=== PATIENT | female | born 1995 | race Caucasian/White ===

== ENCOUNTER 2017-01-14 16:27 | Emergency (ER) | payer OTHER ==
[~2017-01-14] VITALS: Ht 165.1 cm; Wt 61.2 kg
[2017-01-14] MEDS ORDERED: KETOROLAC 30 MG/ML VIAL (J1885) IV ONE (17:15)
[2017-01-14] MEDS ORDERED: NS 1,000 ML IV ONE (17:15)
[2017-01-14] MEDS ORDERED: ONDANSETRON 4MG/2ML VIAL (J2405) IV ONE (17:15)
[2017-01-14 17:52] LABS: BASO % 0.3 % (0.0-1.0); EOS % 0.6 % (0.0-3.0); LARGE UNSTAINED CELL # 0.1 K/mm3 (0.0-0.4); LARGE UNSTAINED CELL % 1.5 % (0.0-4.0); LYMPH % 12.1 % (24.0-44.0); MEAN CORPUSCULAR HEMOGLOBIN 29.7 pg (27.0-33.0); MEAN CORPUSCULAR HGB CONC 33.3 g/dl (32.0-36.5); MEAN CORPUSCULAR VOLUME 89.2 fl (80.0-96.0); MONO # 0.6 K/mm3 (0.0-0.8); MONO % 7.3 % (0.0-5.0); NEUTROPHILS % 78.2 % (36.0-66.0); PLATELET COUNT, AUTOMATED 260 k/mm3 (150-450); WHITE BLOOD COUNT 7.7 K/mm3 (4.0-10.0)
[2017-01-14 18:10] LABS: ALBUMIN/GLOBULIN RATIO 1.25 (1.00-1.93); ALKALINE PHOSPHATASE 74 U/L (45-117); ALT/SGPT 23 U/L (12-78); ANION GAP 5 MEQ/L (8-16); AST/SGOT 22 U/L (15-37); BILIRUBIN,DIRECT 0.4 MG/DL (0.0-0.2); BILIRUBIN,TOTAL 1.5 MG/DL (0.2-1.0); BLOOD UREA NITROGEN 12 MG/DL (7-18); CALCIUM LEVEL 9.1 MG/DL (8.5-10.1); CARBON DIOXIDE LEVEL 28 MEQ/L (21-32); CHLORIDE LEVEL 103 MEQ/L (98-107); CREATININE FOR GFR 1.16 MG/DL (0.55-1.02); GLOMERULAR FILTRATION RATE > 60.0 (>60); GLUCOSE, FASTING 83 MG/DL (70-105); POTASSIUM SERUM 4.3 MEQ/L (3.5-5.1); SODIUM LEVEL 136 MEQ/L (136-145); TOTAL PROTEIN 7.2 GM/DL (6.4-8.2)
--- NOTE | 2017-01-14 18:30 | REPUSA ---
CLINICAL HISTORY: Abdominal pain. TECHNIQUE: Multiple axial, sagittal and coronal CT images were obtained through the abdomen and pelvi s without administration of oral or IV contrast material. COMMENTS: The liver is of uniform attenuation without mass or defect. There is no intra or extrahepatic biliary ductal dilatation. The spleen is normal. The gallbladder is within normal limits. The pancreas is of normal contour and attenuation characteristics. There is no evidence of adrenal mass. The kidneys are normal in size, shape and configuration. 2.5 mm calculus is noted at the right UVJ pr oducing mild hydroureteronephrosis. There is a nonobstructing 4 mm calculus noted in the midpole of t he left kidney. There is a punctate nonobstructing calculus noted in the lower pole of the left kidne y. There is a 5 x 3 mm nonobstructing calculus noted in the superior pole of the left kidney. There is no evidence for appendicitis. There is no bowel wall thickening. No evidence for small or la rge bowel obstruction. There is no evidence of abdominal ascites or lymphadenopathy. There is no evidence of intrinsic or extrinsic bladder mass. There is no pelvic ascites or lymphadeno pilar. The uterus and ovaries are unremarkable. Images of the lung bases show no evidence of pleural or parenchymal mass. There are no pleural effusi ons. The bony structures are free of lytic or blastic lesions. IMPRESSION: 2.5 mm calculus is noted at the right UVJ producing mild hydroureteronephrosis. Several nonobstructing left renal calculi. Thank you for your kind referral of this patient.
[2017-01-14 18:43] VITALS: BP 108/67
[2017-01-14] MEDS ORDERED: ULTR50TA8 PO (18:47)
[2017-01-14] MEDS ORDERED: NAPR500T PO (18:47)
[2017-01-14] MEDS ORDERED: ZOFR4TAB3 PO (18:47)
[2017-01-14] MEDS ORDERED: FLOM5CAP PO (18:48)
[2017-01-14] MEDS ORDERED: traMADol 50 MG TAB (BULK 4 TAB ED) PO ONE (19:00)
== END 2017-01-14 19:02 | disposition home or self-care (01) ==
LOC: M ED 17:15
DX: N13.2 Hydronephrosis with renal and ureteral calculous obstruction (principal)

== ENCOUNTER → 2017-02-13 | Outpatient (CLI) | payer OTHER ==
[~2017-02-13] MED LIST: FLOM5CAP PO; NAPR500T PO; TYLE650T35 PO; ULTR50TA8 PO; ZOFR4TAB3 PO
[2017-02-13 16:27] LABS: CONTROL LINE HCG INT CTR LINE PRESENT
[2017-02-13 16:32] LABS: ANION GAP 5 MEQ/L (8-16); BLOOD UREA NITROGEN 12 MG/DL (7-18); CALCIUM LEVEL 9.7 MG/DL (8.5-10.1); CARBON DIOXIDE LEVEL 28 MEQ/L (21-32); CHLORIDE LEVEL 108 MEQ/L (98-107); CREATININE FOR GFR 0.73 MG/DL (0.55-1.02); GLOMERULAR FILTRATION RATE > 60.0 (>60); GLUCOSE, FASTING 83 MG/DL (70-105); SODIUM LEVEL 141 MEQ/L (136-145)
[2017-02-13 16:38] LABS: POTASSIUM SERUM 5.2 MEQ/L (3.5-5.1)
== END ==
LOC: M LAB 15:38
PROVIDERS: ATTEND Nurse Practitioner Family
DX: N92.5 Other specified irregular menstruation (principal); N20.2 Calculus of kidney with calculus of ureter

== ENCOUNTER → 2017-02-15 | Outpatient (REF) | payer OTHER | LOC: M SMT 12:54 | PROVIDERS: ATTEND Nurse Practitioner Women's Health | DX: N20.0 Calculus of kidney (principal) ==

== ENCOUNTER → 2017-02-16 | Outpatient (CLI) | payer OTHER ==
[2017-02-16 19:04] LABS: CONTROL LINE HCG INT CTR LINE PRESENT
[2017-02-16 19:17] LABS: ANION GAP 5 MEQ/L (8-16); BLOOD UREA NITROGEN 15 MG/DL (7-18); CALCIUM LEVEL 9.7 MG/DL (8.5-10.1); CARBON DIOXIDE LEVEL 29 MEQ/L (21-32); CHLORIDE LEVEL 104 MEQ/L (98-107); CREATININE FOR GFR 0.89 MG/DL (0.55-1.02); GLOMERULAR FILTRATION RATE > 60.0 (>60); GLUCOSE, FASTING 65 MG/DL (70-105); SODIUM LEVEL 138 MEQ/L (136-145)
[2017-02-16 19:34] LABS: MEAN CORPUSCULAR HEMOGLOBIN 29.8 pg (27.0-33.0); MEAN CORPUSCULAR VOLUME 90.2 fl (80.0-96.0); RED CELL DISTRIBUTION WIDTH 12.9 % (11.5-14.5); WHITE BLOOD COUNT 3.2 K/mm3 (4.0-10.0)
[2017-02-16 19:52] LABS: INR 0.95
== END ==
LOC: M SMT 15:45
PROVIDERS: ATTEND Nurse Practitioner Women's Health
DX: N20.0 Calculus of kidney (principal); Z01.818 Encounter for other preprocedural examination

== ENCOUNTER 2017-03-01 07:03 | Day surgery (SDC) | payer OTHER ==
[~2017-03-01] VITALS: Ht 165.1 cm; Wt 61.2 kg
[~2017-03-01 07:03] MED LIST changes: -TYLE650T35 PO
[2017-03-01] MEDS ORDERED: LR 1,000 ML IV SCH (07:30)
--- NOTE | 2017-03-01 07:37 | REP ---
Clinical: Nephrolithiasis. Correlation: CT dated 01/14/2017. Findings: Single supine view of the abdomen and pelvis demonstrates multiple nonobstructing left renal calculi measuring up to approximately 5 mm. Further evaluation of the urinary tract system is limited and the previously noted right UVJ stone is not identified. The bowel gas pattern is nonspecific. No organomegaly. Skeletal structures are intact. Impression: Nonobstructing left renal calculi up to 5 mm. Right UVJ stone on recent CT not visualized on current x-ray. Signed by Ajay Boo MD 03/01/2017 07:29 A
[2017-03-01 08:07] LABS: CONTROL LINE UCG INT CTR LINE PRESENT
[2017-03-01] MEDS ORDERED: LIDOCAINE 2% INJ 100 MG/5 ML SDV (FOR ANES.) As Ordered ONE (08:22)
[2017-03-01] MEDS ORDERED: ONDANSETRON 4MG/2ML VIAL (J2405) As Ordered ONE (08:22)
[2017-03-01] MEDS ORDERED: PROPOFOL 200 MG/20 ML VIAL As Ordered ONE (08:22)
[2017-03-01] MEDS ORDERED: fentaNYL 100 MCG/2 ML INJECTION (J3010) As Ordered ONE (08:22)
[2017-03-01] MEDS ORDERED: MIDAZOLAM INJ 2 MG/2 ML VIAL (J2250) As Ordered ONE (08:22)
[2017-03-01] MEDS ORDERED: SEVOFLURANE INHAL SOLN 250 ML BTL As Ordered ONE (08:38)
[2017-03-01] MEDS ORDERED: DESFLURANE 240 ML INHALANT As Ordered ONE (08:38)
[2017-03-01] MEDS ORDERED: TYLE650T35 PO (08:50)
[2017-03-01] MEDS ORDERED: PERCOCET 5MG/325MG TAB PO PRN (09:15)
[2017-03-01 09:40] VITALS: BP 122/88
--- NOTE | 2017-03-02 10:36 | RO ---
DATE OF PROCEDURE: 03/01/2017 PREOPERATIVE DIAGNOSIS: Left renal stone. POSTOPERATIVE DIAGNOSIS: Left renal stone. SURGERY PERFORMED: Left extracorporeal shock wave lithotripsy. SURGEON: David Darby MD BREAST TRIMMER: None. ANESTHESIA: General. COMPLICATIONS: None. ESTIMATED BLOOD LOSS: N/A. HISTORY OF PRESENT ILLNESS: This is a 21-year-old female patient that has am 8 mm renal stone in the lower pole. The patient is doing very well. She has consented for a left extracorporeal shock wave lithotripsy. PROCEDURE DESCRIPTION: With the patient under monitored anesthesia care (MAC) in supine position, after finding the stone with ultrasound and x-ray, we gave a total of 2000 shock wave lithotripsies at a power 1-20. The first 100 shock waves were done at a level of 1-5. The following 100 shock waves were done at a level of 5-10 and the following final 2300 shock waves were done at a level of 10-20. The patient tolerated well the procedure. She will be going home today with Flomax and she will continue taking tramadol, and we will give her Tylenol vufr-izl-voxmtvm also, 650 mg, Extended Release Arthritis, one tablet by mouth every 8 hours as needed for pain. She will drink more than 2 liters of water a day. She will followup in 3 weeks at [facility] and see if she needs a second session extracorporeal shock wave lithotripsy (ESWL).
== END 2017-03-07 10:00 ==
LOC: M SDC 07:03
PROVIDERS: ATTEND Urology
DX: N20.0 Calculus of kidney (principal); Z79.899 Other long term (current) drug therapy

== ENCOUNTER → 2017-03-22 | Outpatient (CLI) | payer OTHER ==
[~2017-03-22] MED LIST changes: +TYLE650T35 PO
--- NOTE | 2017-03-22 08:58 | REP ---
KUB: Two views. History: Kidney stone. Comparison study: March 01, 2017. Findings: There are two irregular calcifications overlying the left kidney consistent with intrarenal calculi. The largest of these measures 5 mm in greatest dimension. No change from comparison radiograph. No ureteral stone is appreciated. Bowel gas pattern is normal. Impression: Calcific opacities overlie the left kidney consistent with intrarenal nephrolithiasis. Signed by Johnny Iqbal MD 03/22/2017 01:57 P
[2017-03-22 12:52] LABS: IONIZED CALCIUM 5.1 MG/DL (4.5-5.3)
[2017-03-22 13:28] LABS: ANION GAP 5 MEQ/L (8-16); BLOOD UREA NITROGEN 14 MG/DL (7-18); CALCIUM LEVEL 9.4 MG/DL (8.5-10.1); CARBON DIOXIDE LEVEL 29 MEQ/L (21-32); CHLORIDE LEVEL 108 MEQ/L (98-107); CREATININE FOR GFR 0.78 MG/DL (0.55-1.02); GLOMERULAR FILTRATION RATE > 60.0 (>60); GLUCOSE, FASTING 92 MG/DL (70-105); MAGNESIUM LEVEL 2.2 MG/DL (1.8-2.4); PHOSPHORUS LEVEL 3.6 MG/DL (2.5-4.9); POTASSIUM SERUM 4.7 MEQ/L (3.5-5.1); SODIUM LEVEL 142 MEQ/L (136-145)
== END ==
LOC: M SMT 08:31
PROVIDERS: ATTEND Nurse Practitioner Women's Health
DX: N20.0 Calculus of kidney (principal)

== ENCOUNTER → 2017-03-22 | Outpatient (REF) | payer OTHER ==
[2017-03-22 18:04] LABS: ANION GAP 5 MEQ/L (8-16); BLOOD UREA NITROGEN 11 MG/DL (7-18); CALCIUM LEVEL 9.2 MG/DL (8.5-10.1); CARBON DIOXIDE LEVEL 29 MEQ/L (21-32); CHLORIDE LEVEL 106 MEQ/L (98-107); CREATININE FOR GFR 0.74 MG/DL (0.55-1.02); GLOMERULAR FILTRATION RATE > 60.0 (>60); GLUCOSE, FASTING 78 MG/DL (70-105); POTASSIUM SERUM 4.6 MEQ/L (3.5-5.1); SODIUM LEVEL 140 MEQ/L (136-145)
== END ==
LOC: M LABDRAW1 15:57
PROVIDERS: ATTEND Internal Medicine Endocrinology, Diabetes & Metabolism
DX: E04.9 Nontoxic goiter, unspecified (principal)

== ENCOUNTER 2017-08-06 07:14 | Emergency (ER) | payer MEDICAID, SELFPAY, OTHER ==
[2017-08-06 08:16] LABS: KETONE, URINE AUTO RFX NEGATIVE (NEGATIVE); LEUKOCYTE ESTERASE UR AUTO RFX NEGATIVE (NEGATIVE); MUCUS, URINE RFX SMALL (NEGATIVE); NITRITE, URINE AUTO RFX NEGATIVE (NEGATIVE); RBC, URINE AUTO RFX 1 /HPF (0-3); SPECIFIC GRAVITY UR AUTO RFX 1.019 (1.002-1.035); SQUAM EPITHELIAL CELL UR AURFX 0 /HPF (0-6); WBC, URINE AUTO RFX 1 /HPF (0-3)
[2017-08-06 08:43] LABS: BASO % 0.1 % (0.0-1.0); EOS # 0.1 10^3/uL (0.0-0.50); EOS % 0.6 % (0.0-3.0); HEMATOCRIT 42.7 % (36.0-47.0); HEMOGLOBIN 13.7 g/dl (12.0-16.0); IMMATURE GRANULOCYTE % 0.2 % (0-0); LYMPH % 12.1 % (24.0-44.0); MEAN CORPUSCULAR HEMOGLOBIN 27.6 pg (27.0-33.0); MEAN CORPUSCULAR HGB CONC 32.1 g/dl (32.0-36.5); MEAN CORPUSCULAR VOLUME 85.9 fl (80.0-96.0); MONO # 0.7 10^3/uL (0.0-0.8); MONO % 7.5 % (0.0-5.0); NEUTROPHILS # 6.9 10^3/uL (1.8-7.7); NEUTROPHILS % 79.5 % (36.0-66.0); PLATELET COUNT, AUTOMATED 279 10^3/uL (150-450); RED BLOOD COUNT 4.97 10^6/uL (4.00-5.40); RED CELL DISTRIBUTION WIDTH 14.1 % (11.5-14.5); WHITE BLOOD COUNT 8.6 10^3/uL (4.0-10.0)
[2017-08-06 09:02] LABS: ALBUMIN 3.7 GM/DL (3.2-5.2); ALBUMIN/GLOBULIN RATIO 0.95 (1.00-1.93); ALKALINE PHOSPHATASE 55 U/L (45-117); ALT/SGPT 17 U/L (12-78); AMYLASE 129 U/L (25-115); ANION GAP 6 MEQ/L (8-16); AST/SGOT 19 U/L (7-37); BILIRUBIN,DIRECT 0.2 MG/DL (0.0-0.2); BILIRUBIN,TOTAL 1.1 MG/DL (0.2-1.0); BLOOD UREA NITROGEN 12 MG/DL (7-18); CALCIUM LEVEL 8.5 MG/DL (8.5-10.1); CARBON DIOXIDE LEVEL 27 MEQ/L (21-32); CHLORIDE LEVEL 109 MEQ/L (98-107); CREATININE FOR GFR 0.74 MG/DL (0.55-1.02); GLOMERULAR FILTRATION RATE > 60.0 (>60); GLUCOSE, FASTING 89 MG/DL (70-105); LIPASE 146 U/L (73-393); SODIUM LEVEL 142 MEQ/L (136-145); TOTAL PROTEIN 7.6 GM/DL (6.4-8.2)
== END 2017-08-06 10:05 | disposition home or self-care (01) ==
LOC: M ED 07:14
DX: R10.13 Epigastric pain (principal); Z87.442 Personal history of urinary calculi
CPT/HCPCS: 76705

== ENCOUNTER → 2017-08-20 | Outpatient (REF) | payer MEDICAID ==
[2017-08-20 21:48] LABS: CHLAMYDIA DNA AMPLIFICATION POSITIVE (NEGATIVE); GC DNA AMPLIFICATION NEGATIVE (NEGATIVE)
== END ==
LOC: M LAB REF 17:19
DX: N89.8 Other specified noninflammatory disorders of vagina (principal)
CPT/HCPCS: 87591

== ENCOUNTER 2017-08-31 12:30 | Emergency (ER) | payer OTHER, MEDICAID ==
[2017-08-31] MEDS: GI COCKTAIL 50ML BTL(HYOSCYAMINE/MAALOX/LIDOCAINE VISCOUS)(1:3:1) PO (13:44)
[2017-08-31 13:54] LABS: BASO % 0.3 % (0.0-1.0); EOS % 0.3 % (0.0-3.0); HEMATOCRIT 43.7 % (36.0-47.0); HEMOGLOBIN 14.1 g/dl (12.0-16.0); IMMATURE GRANULOCYTE % 0.4 % (0-0); LYMPH # 1.1 10^3/uL (1.5-6.5); MEAN CORPUSCULAR HEMOGLOBIN 27.3 pg (27.0-33.0); MEAN CORPUSCULAR HGB CONC 32.3 g/dl (32.0-36.5); MEAN CORPUSCULAR VOLUME 84.5 fl (80.0-96.0); MONO # 0.6 10^3/uL (0.0-0.8); MONO % 8.8 % (0.0-5.0); NEUTROPHILS # 5.5 10^3/uL (1.8-7.7); NEUTROPHILS % 75.2 % (36.0-66.0); PLATELET COUNT, AUTOMATED 322 10^3/uL (150-450); RED BLOOD COUNT 5.17 10^6/uL (4.00-5.40); RED CELL DISTRIBUTION WIDTH 13.9 % (11.5-14.5); WHITE BLOOD COUNT 7.3 10^3/uL (4.0-10.0)
[2017-08-31 14:21] LABS: ALBUMIN/GLOBULIN RATIO 0.95 (1.00-1.93); ALKALINE PHOSPHATASE 60 U/L (45-117); ALT/SGPT 19 U/L (12-78); ANION GAP 6 MEQ/L (8-16); AST/SGOT 17 U/L (7-37); BILIRUBIN,TOTAL 0.7 MG/DL (0.2-1.0); BLOOD UREA NITROGEN 12 MG/DL (7-18); CARBON DIOXIDE LEVEL 27 MEQ/L (21-32); CHLORIDE LEVEL 108 MEQ/L (98-107); CREATININE FOR GFR 0.73 MG/DL (0.55-1.30); GLOMERULAR FILTRATION RATE > 60.0 (>60); GLUCOSE, FASTING 89 MG/DL (70-100); LIPASE 116 U/L (73-393); POTASSIUM SERUM 4.8 MEQ/L (3.5-5.1); SODIUM LEVEL 141 MEQ/L (136-145); TOTAL PROTEIN 8.2 GM/DL (6.4-8.2)
== END 2017-08-31 15:20 | disposition home or self-care (01) ==
LOC: M ED 12:30
DX: R10.13 Epigastric pain (principal); Z87.442 Personal history of urinary calculi
CPT/HCPCS: 76705

== ENCOUNTER → 2017-09-30 | Outpatient (REF) | payer OTHER ==
[2017-09-30 20:34] LABS: CHLAMYDIA DNA AMPLIFICATION NEGATIVE (NEGATIVE); GC DNA AMPLIFICATION NEGATIVE (NEGATIVE)
== END ==
LOC: M SFHCLERA 16:29
DX: R10.9 Unspecified abdominal pain (principal)
CPT/HCPCS: 87086

== ENCOUNTER 2017-11-11 22:11 | Emergency (ER) | payer OTHER | END 2017-11-11 23:51 | disposition home or self-care (01) | LOC: M ED 22:11 | DX: R21 Rash and other nonspecific skin eruption (principal); Z79.899 Other long term (current) drug therapy | CPT/HCPCS: 99283 ==

== ENCOUNTER 2017-11-22 15:35 | Emergency (ER) | payer OTHER ==
[2017-11-22 16:45] LABS: KETONE, URINE AUTO RFX NEGATIVE (NEGATIVE); LEUKOCYTE ESTERASE UR AUTO RFX NEGATIVE (NEGATIVE); MUCUS, URINE RFX SMALL (NEGATIVE); NITRITE, URINE AUTO RFX NEGATIVE (NEGATIVE); RBC, URINE AUTO RFX 0 /HPF (0-3); SPECIFIC GRAVITY UR AUTO RFX 1.017 (1.002-1.035); SQUAM EPITHELIAL CELL UR AURFX 0 /HPF (0-6); WBC, URINE AUTO RFX 2 /HPF (0-3)
[2017-11-22] MEDS: PANTOPRAZOLE 40MG TAB (PROTONIX) PO (17:38)
[2017-11-22] MEDS: GI COCKTAIL 50ML BTL(HYOSCYAMINE/MAALOX/LIDOCAINE VISCOUS)(1:3:1) PO (17:38)
[2017-11-22] MEDS: ONDANSETRON 4 MG ORAL DISINTEGRATING TAB (Q0162 PER 1MG) PO (17:39)
== END 2017-11-22 18:00 | disposition home or self-care (01) ==
LOC: M ED 15:35
DX: K29.00 Acute gastritis without bleeding (principal); K21.9 Gastro-esophageal reflux disease without esophagitis; F33.9 Major depressive disorder, recurrent, unspecified; Z87.442 Personal history of urinary calculi; Z79.899 Other long term (current) drug therapy
CPT/HCPCS: Q0162

== ENCOUNTER → 2017-11-29 | Outpatient (REF) | payer OTHER ==
[2017-11-29 20:28] LABS: CHLAMYDIA DNA AMPLIFICATION NEGATIVE (NEGATIVE); GC DNA AMPLIFICATION NEGATIVE (NEGATIVE)
== END ==
LOC: M LAB REF 16:32
DX: N89.8 Other specified noninflammatory disorders of vagina (principal)

== ENCOUNTER 2018-03-04 12:37 | Day surgery (SDC) | payer OTHER ==
[2018-03-04] MEDS ORDERED: NS 1,000 ML IV (13:00)
[2018-03-04] MEDS ORDERED: PROPOFOL 200 MG/20 ML VIAL As Ordered (14:08)
[2018-03-04] MEDS ORDERED: LIDOCAINE 2% INJ 100 MG/5 ML SDV (FOR ANES.) As Ordered (14:08)
[2018-03-04] MEDS ORDERED: fentaNYL 100 MCG/2 ML INJECTION (J3010) As Ordered (14:11)
[2018-03-04] MEDS ORDERED: ONDANSETRON 4MG/2ML VIAL (J2405) As Ordered (14:51)
== END 2018-03-04 15:38 | disposition home or self-care (01) ==
LOC: M OPP 12:37
DX: R10.13 Epigastric pain (principal); R11.10 Vomiting, unspecified; K31.89 Other diseases of stomach and duodenum; D64.9 Anemia, unspecified; F41.9 Anxiety disorder, unspecified; F32.9 Major depressive disorder, single episode, unspecified; Z87.442 Personal history of urinary calculi; Z79.899 Other long term (current) drug therapy; Z80.0 Family history of malignant neoplasm of digestive organs
CPT/HCPCS: 43239

== ENCOUNTER 2018-08-04 11:09 | Emergency (ER) | payer OTHER ==
[~2018-08-04] VITALS: Ht 165.1 cm; Wt 68.2 kg
[~2018-08-04 11:09] MED LIST changes: +FLOM0.4C39 PO; -FLOM5CAP PO; +HYDR-3363 PO; +NAPR-50 PO; -NAPR500T PO; +NORCOTAB PO; +PROB250C PO; +PROBCAP14 PO; +PROT1TAB2 PO; +VENTAER INH; +VITA500T53 PO; +ZANT300T9 PO; +ZOFR4TAB14 PO; -ZOFR4TAB3 PO; +atarax; +lexapro
[2018-08-04] MEDS ORDERED: KETOROLAC 60 MG/2 ML VIAL (J1885) IM ONE (12:30)
[2018-08-04 12:57] VITALS: BP 118/73
--- NOTE | 2018-08-04 12:57 | REP ---
CT cervical spine without contrast HISTORY: Trauma COMPARISON: None There is no acute fracture or subluxation. There is no disc bulge or herniation. The spinal canal and neural foramina are patent. The intervertebral discs and vertebral bodies are normal in height. IMPRESSION: There is no acute fracture or subluxation. Electronically Signed by Gabino Ariza MD 08/04/2018 12:48 P
[2018-08-04] MEDS ORDERED: MOBI4TAB PO (12:59)
[2018-08-04] MEDS ORDERED: CYCL10TA PO (12:59)
--- NOTE | 2018-08-04 13:26 | REP ---
THORACIC SPINE, THREE VIEWS: HISTORY: Trauma. There is no acute fracture or subluxation. The intervertebral discs are normal in height. IMPRESSION: There is no acute fracture or subluxation. Electronically Signed by Gabino Ariza MD 08/04/2018 01:31 P
--- NOTE | 2018-08-04 13:27 | REP ---
LUMBAR SPINE, FIVE VIEWS: HISTORY: Trauma. 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 There are four lumbar-type vertebral bodies with sacralization of L5. There is no acute fracture or subluxation. The intervertebral discs are normal in height. The facet joints are normal in appearance. IMPRESSION: There is no acute fracture or subluxation. Electronically Signed by Gabino Ariza MD 08/04/2018 01:31 P
== END 2018-08-04 13:07 | disposition home or self-care (01) ==
LOC: M ED 11:09
DX: M54.2 Cervicalgia (principal); M54.5 Low back pain
CPT/HCPCS: 72072; 72110; 72125; 81025; 96372; 99284; J1885

== ENCOUNTER → 2018-09-03 | Outpatient (REF) | payer OTHER, MEDICAID ==
[~2018-09-03] MED LIST changes: +CYCL10TA PO; +MOBI4TAB PO
[2018-09-03 20:00] LABS: HEMOGLOBIN 14.6 g/dl (12.0-15.5); MEAN CORPUSCULAR HEMOGLOBIN 28.9 pg (27.0-33.0); MEAN CORPUSCULAR HGB CONC 32.4 g/dl (32.0-36.5); MEAN CORPUSCULAR VOLUME 89.1 fl (80.0-96.0); PLATELET COUNT, AUTOMATED 319 10^3/uL (150-450); RED BLOOD COUNT 5.05 10^6/uL (4.00-5.40); WHITE BLOOD COUNT 5.8 10^3/uL (4.0-10.0)
[2018-09-03 20:34] LABS: HCG, SERUM QUANTITATIVE 58949 MIU/ML
[2018-09-04 09:41] LABS: RUBELLA IgG QUALITATIVE IMMUNE (IMMUNE)
[2018-09-04 10:09] LABS: HEPATITIS C VIRUS ABY INDEX 0.1 INDEX (<0.8)
[2018-09-04 10:10] LABS: HIV 1&2 SCREEN CENTAUR NEGATIVE (NEGATIVE)
== END ==
LOC: M LAB REF 17:34
PROVIDERS: ATTEND Nurse Practitioner Women's Health
DX: Z32.01 Encounter for pregnancy test, result positive (principal); O36.80X0 Pregnancy with inconclusive fetal viability, not applicable or unspecified

== ENCOUNTER → 2018-11-11 | Outpatient (REF) | payer OTHER, MEDICAID ==
[~2018-11-11] MED LIST changes: +HYDR-3715 PO; -NAPR-50 PO; +NAPR-837 PO; -NORCOTAB PO; +VITA500T17 PO; -VITA500T53 PO
== END ==
LOC: M LAB REF 16:39
PROVIDERS: ATTEND Nurse Practitioner Women's Health
DX: Z34.82 Encounter for supervision of other normal pregnancy, second trimester (principal); Z53.8 Procedure and treatment not carried out for other reasons

== ENCOUNTER → 2019-02-03 | Outpatient (CLI) | payer OTHER ==
[2019-02-03 12:44] LABS: HEMATOCRIT 36.4 % (36.0-47.0); HEMOGLOBIN 11.6 g/dl (12.0-15.5); MEAN CORPUSCULAR HEMOGLOBIN 29.8 pg (27.0-33.0); MEAN CORPUSCULAR HGB CONC 31.9 g/dl (32.0-36.5); MEAN CORPUSCULAR VOLUME 93.6 fl (80.0-96.0); PLATELET COUNT, AUTOMATED 270 10^3/uL (150-450); RED BLOOD COUNT 3.89 10^6/uL (4.00-5.40); WHITE BLOOD COUNT 8.5 10^3/uL (4.0-10.0)
== END ==
LOC: M LAB 11:03
PROVIDERS: ATTEND Nurse Practitioner Women's Health
DX: O26.892 Other specified pregnancy related conditions, second trimester (principal)

== ENCOUNTER → 2019-04-01 | Outpatient (REF) | payer OTHER | LOC: M LAB REF 13:07 | PROVIDERS: ATTEND Nurse Practitioner Women's Health | DX: Z34.03 Encounter for supervision of normal first pregnancy, third trimester (principal) ==

== ENCOUNTER → 2020-06-10 | Outpatient (REF) | payer OTHER ==
[~2020-06-10] MED LIST changes: +ACET650T61 PO; +CYCL-707 PO; -CYCL10TA PO; -TYLE650T35 PO
[2020-06-10 16:46] LABS: HEMATOCRIT 41.4 % (36.0-47.0); HEMOGLOBIN 12.8 g/dl (12.0-15.5); MEAN CORPUSCULAR HEMOGLOBIN 25.4 pg (27.0-33.0); MEAN CORPUSCULAR HGB CONC 30.9 g/dl (32.0-36.5); MEAN CORPUSCULAR VOLUME 82.1 fl (80.0-96.0); PLATELET COUNT, AUTOMATED 378 10^3/uL (150-450); RED BLOOD COUNT 5.04 10^6/uL (4.00-5.40); WHITE BLOOD COUNT 6.7 10^3/uL (4.0-10.0)
[2020-06-10 18:04] LABS: HCG, SERUM QUANTITATIVE 28452 MIU/ML; HEPATITIS C VIRUS ABY INDEX 0.1 INDEX (<0.8); HIV 1&2 SCREEN CENTAUR NEGATIVE (NEGATIVE)
== END ==
LOC: M LAB REF 16:15
PROVIDERS: ATTEND Advanced Practice Midwife
DX: O36.80X0 Pregnancy with inconclusive fetal viability, not applicable or unspecified (principal)

== ENCOUNTER → 2020-06-17 | Outpatient (CLI) | payer OTHER ==
--- NOTE | 2020-06-19 07:15 | REP ---
INDICATION: DATING AND VIABILITY COMPARISON: None. TECHNIQUE: Transabdominal and transvaginal 1st trimester obstetrical ultrasound with color Doppler evaluation. FINDINGS: Single live early intrauterine is appreciated. Gestational sac with yolk sac and pole identified. [place]-rump length of 7 mm corresponds to 6 weeks 4 days gestational age with estimated date of delivery 02/06/2021. heart rate equals 140 beats per minute. A subchorionic hemorrhages identified to the right of the gestational sac measuring 23 x 15 x 16 mm. Maternal ovaries demonstrate 1.8 x 1.1 x 1.5 cm left corpus luteum cyst. IMPRESSION: 1. Single live early intrauterine at 6 weeks 4 days gestational age. Complete anatomical assessment should be performed and 19-20 weeks. 2. Moderate subchorionic hemorrhage. <Electronically signed by Ajay Boo > 06/19/20 [id number]
== END ==
LOC: M RAD 15:33
PROVIDERS: ATTEND Advanced Practice Midwife
DX: O36.80X0 Pregnancy with inconclusive fetal viability, not applicable or unspecified (principal)

== ENCOUNTER → 2020-09-21 | Outpatient (CLI) | payer OTHER ==
--- NOTE | 2020-09-21 15:25 | REP ---
INDICATION: ANATOMY. COMPARISON: 06/17/2020. TECHNIQUE: Real-time sonographic evaluation of the gravid uterus performed. FINDINGS: Estimated gestational age is20 weeks 2 days, EDC 02/06/2021. Today's measurements indicate appropriate growth. Presentation: Cephalic Placenta anterior, grade 0, without evidence of placenta previa. heart rate is recorded at 146 beats per minute. Amniotic fluid is subjectively normal. Closed cervical length is measured at 3.8 cm. Biometry chart: BPD: 51 mm, 21 weeks 3 days, 82nd percentile. HC: 197 mm, 21 weeks 6 days, greater than 95th percentile AC: 156 mm, 20 weeks 5 days, 60th percentile Femur length: 33 mm, 20 weeks 3 days, 53rd percentile HC to AC ratio: 1.26, normal range 1.06-1.24. Estimated weight: 375g, percentile. anatomy: Cranium: Grossly normal Lateral Ventricles/Choroid Plexus: Grossly normal Posterior Fossa/Cerebellum: Grossly normal Nose/lips/profile: Grossly normal Four chamber heart: Grossly normal Right ventricular outflow tract: Grossly normal Left ventricular outflow tract: Grossly normal Left-sided stomach: Grossly normal Kidneys: Grossly normal Bladder: Grossly normal Cord Insertion: Grossly normal 3 vessel cord: Grossly normal Spine: Grossly normal IMPRESSION: Viable single intrauterine gestation as above. <Electronically signed by Chris Simmons > 09/21/20 [id number]
== END ==
LOC: M WHC 10:30
PROVIDERS: ATTEND Advanced Practice Midwife
DX: Z34.82 Encounter for supervision of other normal pregnancy, second trimester (principal); Z3A.20 20 weeks gestation of pregnancy

== ENCOUNTER → 2020-10-25 | Outpatient (CLI) | payer OTHER ==
[2020-10-25 12:17] LABS: BASO % 0.1 % (0.0-1.0); EOS % 0.4 % (0.0-3.0); HEMATOCRIT 36.4 % (36.0-47.0); HEMOGLOBIN 11.4 g/dl (12.0-15.5); LYMPH # 1.1 10^3/uL (1.5-5.0); LYMPH % 14.5 % (24.0-44.0); MEAN CORPUSCULAR HEMOGLOBIN 25.9 pg (27.0-33.0); MEAN CORPUSCULAR HGB CONC 31.3 g/dl (32.0-36.5); MEAN CORPUSCULAR VOLUME 82.5 fl (80.0-96.0); MONO # 0.6 10^3/uL (0.0-0.8); MONO % 7.4 % (2.0-8.0); NEUTROPHILS # 6.1 10^3/uL (1.5-8.5); NEUTROPHILS % 77.2 % (36.0-66.0); PLATELET COUNT, AUTOMATED 319 10^3/uL (150-450); RED BLOOD COUNT 4.41 10^6/uL (4.00-5.40); WHITE BLOOD COUNT 7.9 10^3/uL (4.0-10.0)
[2020-10-25 12:51] LABS: ALT/SGPT 13 U/L (12-78); BILIRUBIN,TOTAL 0.4 MG/DL (0.2-1.0); BLOOD UREA NITROGEN 12 MG/DL (7-18); CALCIUM LEVEL 9.3 MG/DL (8.5-10.1); CARBON DIOXIDE LEVEL 27 MEQ/L (21-32); CHLORIDE LEVEL 106 MEQ/L (98-107); CREATININE FOR GFR 0.65 MG/DL (0.55-1.30); FREE T4 0.96 NG/DL (0.76-1.46); GLOMERULAR FILTRATION RATE > 60.0 (>60); GLUCOSE, FASTING 62 MG/DL (70-100); IRON (FE) 37 UG/DL (50-170); PERCENT SATURATION 6.2 % (13.2-45.0); POTASSIUM SERUM 4.8 MEQ/L (3.5-5.1); SODIUM LEVEL 137 MEQ/L (136-145); TOTAL IRON BINDING CAPACITY 595 UG/DL (250-450); TOTAL PROTEIN 7.1 GM/DL (6.4-8.2)
[2020-10-25 12:55] LABS: TOTAL 25(OH) VITAMIN D 23.5 NG/ML (30.0-100.0)
== END ==
LOC: M LAB 11:16
PROVIDERS: ATTEND Physician Assistant
DX: R53.83 Other fatigue (principal)

== ENCOUNTER → 2020-11-17 | Outpatient (CLI) | payer OTHER ==
[2020-11-17 14:11] LABS: HEMATOCRIT 33.9 % (36.0-47.0); HEMOGLOBIN 10.2 g/dl (12.0-15.5); MEAN CORPUSCULAR HEMOGLOBIN 24.7 pg (27.0-33.0); MEAN CORPUSCULAR HGB CONC 30.1 g/dl (32.0-36.5); MEAN CORPUSCULAR VOLUME 82.1 fl (80.0-96.0); PLATELET COUNT, AUTOMATED 297 10^3/uL (150-450); RED BLOOD COUNT 4.13 10^6/uL (4.00-5.40); WHITE BLOOD COUNT 7.9 10^3/uL (4.0-10.0)
== END ==
LOC: M LAB 12:38
PROVIDERS: ATTEND Advanced Practice Midwife
DX: Z34.82 Encounter for supervision of other normal pregnancy, second trimester (principal)

== ENCOUNTER → 2020-12-08 | Outpatient (REF) | payer OTHER | LOC: M LAB REF 12:07 | PROVIDERS: ATTEND Advanced Practice Midwife | DX: R10.84 Generalized abdominal pain (principal) ==

== ENCOUNTER → 2021-01-07 | Outpatient (REF) | payer OTHER | LOC: M LAB REF 16:33 | PROVIDERS: ATTEND Advanced Practice Midwife | DX: Z34.83 Encounter for supervision of other normal pregnancy, third trimester (principal) ==

== ENCOUNTER 2021-02-20 07:43 | Emergency (ER) | payer OTHER ==
[~2021-02-20] VITALS: Ht 165.1 cm; Wt 72.3 kg
[2021-02-20] MEDS ORDERED: PRENTAB9 PO (07:52)
[2021-02-20] MEDS ORDERED: ASPIRIN 81 MG CHEW TABLET PO ONE (08:30)
[2021-02-20 09:25] LABS: BASO % 0.3 % (0.0-1.0); EOS % 0.3 % (0.0-3.0); HEMATOCRIT 44.8 % (36.0-47.0); HEMOGLOBIN 13.7 g/dl (12.0-15.5); LYMPH % 14.8 % (24.0-44.0); MEAN CORPUSCULAR HEMOGLOBIN 23.7 pg (27.0-33.0); MEAN CORPUSCULAR HGB CONC 30.6 g/dl (32.0-36.5); MEAN CORPUSCULAR VOLUME 77.4 fl (80.0-96.0); MONO # 0.6 10^3/uL (0.0-0.8); MONO % 9.4 % (2.0-8.0); NEUTROPHILS % 74.9 % (36.0-66.0); PLATELET COUNT, AUTOMATED 308 10^3/uL (150-450); RED BLOOD COUNT 5.79 10^6/uL (4.00-5.40); WHITE BLOOD COUNT 6.6 10^3/uL (4.0-10.0)
[2021-02-20 09:45] LABS: HCG, SERUM QUALITATIVE NEGATIVE (NEGATIVE)
[2021-02-20 09:55] LABS: ALBUMIN 3.9 GM/DL (3.2-5.2); ALT/SGPT 42 U/L (12-78); BILIRUBIN,DIRECT 0.2 MG/DL (0.0-0.2); BLOOD UREA NITROGEN 15 MG/DL (7-18); CALCIUM LEVEL 9.3 MG/DL (8.5-10.1); CARBON DIOXIDE LEVEL 25 MEQ/L (21-32); CHLORIDE LEVEL 110 MEQ/L (98-107); CK-MB VALUE MASS < 1.0 NG/ML (<3.6); CPK CREATINE PHOSPHOKINASE 71 U/L (26-192); FREE T4 0.99 NG/DL (0.76-1.46); GLOMERULAR FILTRATION RATE > 60.0 (>60); GLUCOSE, FASTING 85 MG/DL (70-100); LIPASE 101 U/L (73-393); MB/CK RELATIVE INDEX 1.41 (< OR =4); NT-PRO BNP 24 PG/ML (<125); POTASSIUM SERUM 4.3 MEQ/L (3.5-5.1); SODIUM LEVEL 141 MEQ/L (136-145); THYROID STIMULATING HORMONE 0.963 uIU/ML (0.358-3.740); TROPONIN I < 0.02 NG/ML (< 0.10)
[2021-02-20] MEDS ORDERED: ISOVUE-370 76% 100ML VIAL As Ordered ONE (09:58)
--- NOTE | 2021-02-20 10:09 | REP ---
INDICATION: CHEST PAIN. COMPARISON: Comparison chest x-ray February 20, 2020. TECHNIQUE: Two views.. FINDINGS: The lungs are well inflated and free of infiltrate. The pleural angles are sharp. The heart size is normal. Pulmonary vasculature is not increased. No significant bony abnormality is seen. IMPRESSION: Negative chest x-ray. <Electronically signed by Benedicto Iqbal > 02/20/21 [id number]
--- NOTE | 2021-02-20 10:29 | REP ---
INDICATION: L CHEST PAIN R/O PE. COMPARISON: None. TECHNIQUE: Contrast dose: 75 ML of Isovue [address] technique: Helical scanning is acquired and overlapping 1.5 mm and contiguous 3 mm axial images are reformatted. In addition, maximum intensity projection and multiplanar re-formation images are generated in sagittal and coronal imaging projections. FINDINGS: There is good opacification of the pulmonary arterial tree. There are linear filling defects in 2nd and 3rd order branches of the left lower lobe pulmonary arterial tree consistent with pulmonary embolism. No other filling defect is seen. No central thrombus is observed. The thoracic aorta enhances homogeneously and is normal in course caliber and contour. No mediastinal mass or adenopathy is seen. No pleural or pericardial effusion is observed. Lung window settings demonstrate a small peripheral infiltrate in the left lower lobe and right basal segment consistent with a small left lower lobe pulmonary infarction. Lung alegre are otherwise clear. In the upper abdomen, normal adrenal glands are seen. There is a 9 mm intrarenal calculus in the upper pole the left kidney at the bottom of the imaging field of view. This is larger than it was on the January 14, [address] study. IMPRESSION: The study is positive for pulmonary embolus to the 2nd and 3rd order branches of the left lower lobe pulmonary arterial tree. There is a small anterobasilar segment left lower lobe pulmonary infarction. There is a 9 mm intrarenal calculus in the upper pole of the left kidney. This is seen at the bottom edge of the imaging field of view.. <Electronically signed by Benedicto Iqbal > 02/20/21 [id number]
[2021-02-20] MEDS ORDERED: METAL LOCK LOOP XX ONE (11:10)
[2021-02-20] MEDS ORDERED: ACETAMINOPHEN 500 MG TAB PO ONE (11:10)
--- NOTE | 2021-02-20 12:25 | REP ---
INDICATION: PE, R/O DVT. COMPARISON: None. TECHNIQUE: Bilateral lower extremity duplex venous scanning is performed from the groin to the ankle level. FINDINGS: The deep veins are anechoic and fully compressible from the groin to the popliteal fossa in the left and right lower extremity. Color flow imaging is homogeneous. Spectral Doppler interrogation demonstrates intact respiratory variation in flow and normal manual augmentation of flow. There is no evidence of deep vein thrombosis in the femoropopliteal veins. There is no evidence of deep vein thrombosis in the visualized calf veins. IMPRESSION: No evidence of DVT in the femoropopliteal veins. No DVT in the visible portions of the calf veins. <Electronically signed by Benedicto Iqbal > 02/20/21 [id number]
[2021-02-20] MEDS ORDERED: XARE15TA PO (12:42)
[2021-02-20 13:02] LABS: CK-MB VALUE MASS < 1.0 NG/ML (<3.6); CPK CREATINE PHOSPHOKINASE 63 U/L (26-192); MB/CK RELATIVE INDEX 1.59 (< OR =4); TROPONIN I < 0.02 NG/ML (< 0.10)
[2021-02-20 13:32] VITALS: BP 125/86
[2021-02-21] MEDS ORDERED: XARE15TA PO (05:09)
--- NOTE | 2021-02-21 20:18 | ECGEPIP ---
[facility] - ED Test Date: 2021-02-20 Pat Name: JOZEF GRAY Department: Room: - Gender: Female Bead Trimmer: ED : 1995 Requested By: Chio Woody PA-C Order Number: [id number] Reading MD: Jannie Mendiola Measurements Intervals [place] Rate: 80 P: 24 DE: 130 QRS: 79 QRSD: 76 T: 1 QT: 370 QTc: 426 Interpretive Statements Normal sinus rhythm T wave abnormality, consider ischemia No prior Electronically Signed on 02-21-2021 20:18:08 EDT by Jannie Mendiola
== END 2021-02-20 14:21 | disposition home or self-care (01) ==
LOC: M ED 07:43
DX: I26.99 Other pulmonary embolism without acute cor pulmonale (principal); R07.9 Chest pain, unspecified; R06.02 Shortness of breath; J45.909 Unspecified asthma, uncomplicated; F41.9 Anxiety disorder, unspecified; F32.9 Major depressive disorder, single episode, unspecified; G47.00 Insomnia, unspecified; Z87.442 Personal history of urinary calculi; Z86.711 Personal history of pulmonary embolism
CPT/HCPCS: 36415; 71046; 71275; 80048; 80076; 82550; 82553; 83690; 83880; 84439; 84443; 84484; 84703; 85025; 85379; 93005; 93970; 99284; Q9967

== ENCOUNTER 2021-02-21 02:42 | Inpatient (IN) | payer OTHER ==
[~2021-02-21] VITALS: Ht 165.1 cm; Wt 70.7 kg
[~2021-02-21 02:42] MED LIST changes: +PRENTAB9 PO; +XARE15TA PO
[2021-02-21 03:36] LABS: BASO % 0.1 % (0.0-1.0); EOS # 0.1 10^3/uL (0.0-0.5); EOS % 0.8 % (0.0-3.0); HEMATOCRIT 44.6 % (36.0-47.0); HEMOGLOBIN 13.5 g/dl (12.0-15.5); LYMPH % 13.6 % (24.0-44.0); MEAN CORPUSCULAR HEMOGLOBIN 23.8 pg (27.0-33.0); MEAN CORPUSCULAR HGB CONC 30.3 g/dl (32.0-36.5); MEAN CORPUSCULAR VOLUME 78.5 fl (80.0-96.0); MONO # 0.7 10^3/uL (0.0-0.8); MONO % 9.9 % (2.0-8.0); NEUTROPHILS # 5.6 10^3/uL (1.5-8.5); NEUTROPHILS % 75.5 % (36.0-66.0); PLATELET COUNT, AUTOMATED 308 10^3/uL (150-450); RED BLOOD COUNT 5.68 10^6/uL (4.00-5.40); WHITE BLOOD COUNT 7.5 10^3/uL (4.0-10.0)
[2021-02-21 03:53] LABS: INR 1.17; PROTHROMBIN TIME 15.2 SECONDS (12.5-14.3)
[2021-02-21 04:22] LABS: ALT/SGPT 40 U/L (12-78); BILIRUBIN,DIRECT 0.3 MG/DL (0.0-0.2); BILIRUBIN,TOTAL 1.2 MG/DL (0.2-1.0); BLOOD UREA NITROGEN 17 MG/DL (7-18); CALCIUM LEVEL 8.6 MG/DL (8.5-10.1); CARBON DIOXIDE LEVEL 25 MEQ/L (21-32); CHLORIDE LEVEL 109 MEQ/L (98-107); CK-MB VALUE MASS < 1.0 NG/ML (<3.6); CPK CREATINE PHOSPHOKINASE 68 U/L (26-192); GLOMERULAR FILTRATION RATE > 60.0 (>60); GLUCOSE, FASTING 84 MG/DL (70-100); MB/CK RELATIVE INDEX 1.47 (< OR =4); NT-PRO BNP 17 PG/ML (<125); POTASSIUM SERUM 3.8 MEQ/L (3.5-5.1); SODIUM LEVEL 141 MEQ/L (136-145); TROPONIN I < 0.02 NG/ML (< 0.10)
[2021-02-21] MEDS ORDERED: XARE15TA PO (05:09)
[2021-02-21] MEDS ORDERED: PERCOCET 5MG/325MG TAB PO PRN (05:10)
[2021-02-21] MEDS ORDERED: ACETAMINOPHEN TAB 650MG DOSE (2X325MG) PO PRN (05:10)
--- NOTE | 2021-02-21 05:25 | REPVR ---
PROCEDURE INFORMATION: Exam: XR Chest Exam date and time: 02/21/2021 4:03 AM Age: 25 years old Clinical indication: Cough and dyspnea; Additional info: Dyspnea/cough TECHNIQUE: Imaging protocol: XR of the chest. Views: 1 view. COMPARISON: CT ANGIO CHEST 02/20/2021 10:04 AM FINDINGS: Lungs: Minimal left base infiltrate. Pleural spaces: Unremarkable. No pleural effusion. No pneumothorax. Heart/Mediastinum: Unremarkable. No cardiomegaly. Bones/joints: Unremarkable. IMPRESSION: Minimal left base infiltrate consistent with pneumonia or pneumonitis. Electronically signed by: Herbert Lira On 02/21/2021 05:24:48 AM
[2021-02-21] MEDS ORDERED: PERCOCET 5MG/325MG TAB PO ONE (05:35)
--- NOTE | 2021-02-21 05:49 | HPEPDOC ---
[facility] Medical History & Physical Date of Admission Feb 21, 2021 Date of Service: Feb 21, 2021 History and Physical CHIEF COMPLAINT: "My chest hurt when I take a deep breath ", shortness of breath for 1 day HISTORY OF PRESENT ILLNESS: 25-year-old female recently delivered vaginally 1 month ago currently on maternity leave, with strong family history of hypercoagulable state, with the mother having a PE on chronic Xarelto and maternal grandmother also taking blood thinners, was in her usual state of health until yesterday when she developed acute onset of pleuritic chest pain and shortness of breath. She denied any palpitations dizziness lightheadedness near syncope or dyspnea on exertion but describes the pain as a crossed the chest sometimes leading down the left arm feeling like heartburn or a pulled muscle. She was seen in the emergency room CT chest showed second and third-degree branch PE she was given a prescription for Xarelto and discharged home patient arrived at the pharmacy 15 minutes before closing and was unable to chicken picker her Xarelto at home she borrowed her mother's Xarelto and took 10 mg orally x1 dose. Throughout the night patient developed worsening pleuritic chest pain now with radiation to the back left flank and unable to catch her breath prompting her to come to the ER she was found to be hemodynamically stable with systolic pressure 133 tachycardic with heart rate of 111 bpm and saturating 94% on room air with ambulation hospitalist was called to admit the patient due to uncontrolled pleuritic chest pain from pulmonary embolism. EKG showed no right ventricular strain echocardiogram ordered patient was started on Lovenox 1 mg/kg every 12 hours. Percocet was given for pain control. PAST MEDICAL HISTORY: Kidney stones status post lithotripsy seasonal asthma Gastroesophageal reflux disease EGD by Dr. Hurtado shows no gastric erosions H. pylori or peptic ulcer disease Otitis media with ear tubes as a child PAST SURGICAL HISTORY: EGD ear tubes as a child lithotripsy for kidney stones SOCIAL HISTORY: Works at [employer] currently on maternity leave ;had a vaginal delivery 1 month ago denies any alcohol tobacco or recreational drug use FAMILY HISTORY: Maternal side with hypercoagulable state mother takes Xarelto maternal grandmother also had blood clots ALLERGIES: Please see below. REVIEW OF SYSTEMS: 10 point review of systems negative aside from positive findings in HPI HOME MEDICATIONS: Please see below. PHYSICAL EXAMINATION: VITAL SIGNS: See below GENERAL APPEARANCE: 5-6 word conversational dyspnea mild distress no tracheal deviation no cyanosis awake alert oriented to person place and time HEENT: Moist mucous membranes extraocular muscles intact pupils equally round reactive normocephalic atraumatic no stridor no tracheal deviation positive use of respiratory accessory muscles CARDIOVASCULAR: S1-S2 sinus tachycardia no murmurs rubs or gallops no right ventricular heave LUNGS: Clear to auscultation no wheezing rales or rhonchi air entry is equal bilaterally no kyphosis no scoliosis no adventitious breath sounds inspiratory expiratory ratio 1:2 ABDOMEN: Positive bowel sounds soft nontender nondistended no CVA tenderness no hepatosplenomegaly no rebound or guarding EXTREMITIES: No cyanosis clubbing or pitting edema LABORATORY DATA: See below. IMAGING: See below MICROBIOLOGY: Please see below. ASSESSMENT: 25-year-old female who recently had a vaginal delivery 1 month ago with a strong family history of hypercoagulable state with her mother having blood clots in maternal grandmother on anticoagulation presents with 1 day history of pleuritic chest pain shortness of breath without cough fever chills dizziness lightheadedness near syncope or dyspnea on exertion. Patient was seen in the ER with CT confirming pulmonary embolism and patient being discharged home on Xarelto. Patient was unable to chicken picker her prescription because the pharmacy had closed she took her mother Xarelto but came back to the emergency room due to ongoing pleuritic chest pain. Pulmonary embolism -In the setting of a strong family history of hypercoagulable state and recent vaginal delivery 1 month ago -Patient was given a prescription for Xarelto but was unable to pick this up at the pharmacy which was closing when she arrived. -Patient will be given Lovenox 1 mg/kg subcu every 12 hourly her current weight is 70.7 kg she will be given 70 units subcu 1 dose now. -As needed pain medications with Percocet and morphine monitor for respiratory acidosis and hypercarbic respiratory failure -Check 2D echo to rule out right ventricular strain. -Hypercoagulable work-up sent. -If needed supplemental oxygen to keep O2 sat greater than 90% Recent vaginal delivery -Predisposed to hypercoagulable state. Diet regular DVT prophylaxis on Lovenox Vital Signs Vital Signs Date Time Temp Pulse Resp B/P (MAP) Pulse Ox O2 Delivery O2 Flow Rate FiO2 02/21/21 03:32 Room Air 02/21/21 02:50 02/21/21 02:43 97.9 111 20 94 Laboratory Data Labs 24H Laboratory Tests 2 02/21/21 03:23: Immature Granulocyte % (Auto) 0.1, Neutrophils (%) (Auto) 75.5H, Lymphocytes (%) (Auto) 13.6L, Monocytes (%) (Auto) 9.9H, Eosinophils (%) (Auto) 0.8, Basophils (%) (Auto) 0.1, Neutrophils # (Auto) 5.6, Lymphocytes # (Auto) 1.0L, Monocytes # (Auto) 0.7, Eosinophils # (Auto) 0.1, Basophils # (Auto) 0.0, Nucleated Red Blood Cells % (auto) 0.0, Prothrombin Time 15.2H, Prothromb Time International Ratio 1.17, Activated Partial Thromboplast Time 35.0, Anion Gap 7L, Glomerular Filtration Rate > 60.0, Calcium Level 8.6, Total Bilirubin 1.2H, Direct Bilirubin 0.3H, Aspartate Amino Transf (AST/SGOT) 26, Alanine Aminotransferase (ALT/SGPT) 40, Alkaline Phosphatase 94, Total Creatine Kinase 68, Creatine Kinase MB < 1.0, Creatine Kinase MB Relative Index 1.47, Troponin I < 0.02, SO-Urk-X-Type Natriuretic Peptide 17, Total Protein 8.0, Albumin 4.0, Albumin/Globulin Ratio 1.0L, Thyroid Stimulating Hormone (TSH) 1.970 CBC/BMP Laboratory Tests 02/21/21 03:23 Microbiology Microbiology 02/21/21 Respiratory Virus Panel (PCR) ([facility]) - Final, Complete Home Medications Scheduled No.137/Iron/Folic Acd ( Vitamin Tablet) 1 Each Tablet, 1 TAB PO DAILY Rivaroxaban (Xarelto) 15 Mg Tablet, 15 MG PO BID Allergies Coded Allergies: No Known Drug Allergies (Verified Allergy, Unknown, 02/20/21) A-FIB/CHADSVASC A-FIB History Current/History of A-Fib/PAF?: No Current PO Anticoag Therapy: No Age/Risk Factor Scoring CHADSVASC: CHADSVASC Response (Comments) Value Age Risk Factor Age < 65 years old 0 Gender Risk Factor Female 1 Hx of CHF No 0 Hx of HTN No 0 Hx of Stroke/TIA/or VTE No 0 Hx of Diabetes No 0 Hx of Vascular Disease No 0 Total 1 Treatment Treatment ordered: NONE SUNI MATTHEWS MD Feb 21, 2021 05:40
[2021-02-21] MEDS ORDERED: ENOXAPARIN 80MG/0.8ML SYRINGE (J1650 PER 10MG) SC SCH (06:00)
[2021-02-21] MEDS ORDERED: MORPHINE 4 MG/ML 1ML VIAL/SYRINGE (J2270) IV ONE (06:20)
[2021-02-21 08:40] VITALS: BP 110/72
--- NOTE | 2021-02-21 09:06 | IPNPDOC ---
Subjective Date Seen The patient was seen on 02/21/21. Subjective Chief Complaint/HPI Mrs. Larkin is a 25 year old female who recently delivered 1 month ago and has family history of hypercoagulable state who is here with pleuritic chest pain. Pain is sharp and on the left side. Worse with deep breathing. Better with pain medication. Objective Physical Examination General Exam: Positive: Alert, Cooperative, Mild Distress Eye Exam: Negative: Sclera icteric Neck Exam: Positive: Supple Chest Exam: Positive: Clear to auscultation, Diminished Heart Exam: Positive: Rate Normal, Regular Rhythm Abdomen Exam: Positive: Normal bowel sounds, Soft; Negative: Tenderness Extremity Exam: Negative: Edema Neuro Exam: Positive: Normal Speech Psych Exam: Positive: Anxiety Assessment /Plan Assessment Mrs. Larkin is a 25 year old female who recently delivered 1 month ago and has fa cris history of hypercoagulable state who is here with pleuritic chest pain. In prior ED visit, CT chest demonstrated a PE in the 2nd and 3rd order branches of the left lower lobe. She was sent home from ED, but was not able to draft roller picker Xarelto. Overnight, her pain worsened and she returned to the ED. She was admitted for intractable pain. Repeat imaging demonstrated pneumonia vs pneumonitis. Unlikely pneumonia as she has no fever, leukocytosis, or hypoxia. Check procalcitonin. She may also be splinting due to the pain. Will scheduled acetaminophen and give PRN tramadol. Start incentive spirometer. Plan/VTE VTE Prophylaxis Ordered?: Yes Plan 1. Acute pulmonary embolus -May be provoked from recent , but she has strong family history of hypercoagulable state -Hypercoagulable work up pending -Scheduled acetaminophen and PRN tramadol for pain -IS ordered -Continue full dose Lovenox 2. Recent -Delivered last month -Continue multivitamin 3. DVT ppx -Lovenox Disposition: Pending improvement in pleuritic pain VS, I&O, 24H, Fishbone Vital Signs/I&O Vital Signs Date Time Temp Pulse Resp B/P (MAP) Pulse Ox O2 Delivery O2 Flow Rate FiO2 02/21/21 07:25 97.6 02/21/21 07:19 18 02/21/21 07:00 78 120/72 (88) 96 02/21/21 06:36 Room Air Laboratory Data 24H LABS Laboratory Tests 2 02/21/21 03:23: Immature Granulocyte % (Auto) 0.1, Neutrophils (%) (Auto) 75.5H, Lymphocytes (%) (Auto) 13.6L, Monocytes (%) (Auto) 9.9H, Eosinophils (%) (Auto) 0.8, Basophils (%) (Auto) 0.1, Neutrophils # (Auto) 5.6, Lymphocytes # (Auto) 1.0L, Monocytes # (Auto) 0.7, Eosinophils # (Auto) 0.1, Basophils # (Auto) 0.0, Nucleated Red Blood Cells % (auto) 0.0, Prothrombin Time 15.2H, Prothromb Time International Ratio 1.17, Activated Partial Thromboplast Time 35.0, Anion Gap 7L, Glomerular F iltration Rate > 60.0, Calcium Level 8.6, Total Bilirubin 1.2H, Direct Bilirubin 0.3H, Aspartate Amino Transf (AST/SGOT) 26, Alanine Aminotransferase (ALT/SGPT) 40, Alkaline Phosphatase 94, Total Creatine Kinase 68, Creatine Kinase MB < 1.0, Creatine Kinase MB Relative Index 1.47, Troponin I < 0.02, ZA-Omu-Q-Type Natriuretic Peptide 17, Total Protein 8.0, Albumin 4.0, Albumin/Globulin Ratio 1.0L, Thyroid Stimulating Hormone (TSH) 1.970 02/21/21 08:03: CBC/BMP Laboratory Tests 02/21/21 03:23 Microbiology Microbiology 02/21/21 Respiratory Virus Panel (PCR) ([facility]) - Final, Complete JAMESZORANNab RAMIREZ Feb 21, 2021 09:06
[2021-02-21] MEDS: traMADol 50 MG TAB PO PRN ×3 (09:28→23:12)
[2021-02-21] MEDS: ENOXAPARIN 80MG/0.8ML SYRINGE (J1650 PER 10MG) SC SCH ×2 (09:29→20:32)
[2021-02-21] MEDS: ACETAMINOPHEN 500 MG TAB PO SCH ×3 (09:30→20:32)
[2021-02-21] MEDS: MORPHINE 4 MG/ML 1ML VIAL/SYRINGE (J2270) IV PRN ×4 (09:49→20:33)
[2021-02-21] MEDS: PRENATAL VITAMINS CHEWABLE TABLET PO SCH (11:26)
[2021-02-21] MEDS ORDERED: MORPHINE 2 MG/ML 1ML VIAL (J2270) IV ONE (12:00)
--- NOTE | 2021-02-21 12:18 | REP ---
INDICATION: Sharp chest pain. COMPARISON: Comparison chest x-ray is from February 21, 2021. TECHNIQUE: PA and lateral views of the chest... FINDINGS: There is a new infiltrate in the left lower lobe posteriorly and laterally. This corresponds with the location of the pulmonary infarct seen on recent CT study. There is no evidence of pleural effusion. No new infiltrate is seen. IMPRESSION: Left lower lobe infiltrate consistent with pulmonary infarction.. <Electronically signed by Benedicto Iqbal > 02/21/21 [id number]
[2021-02-21 14:00] VITALS: BP 124/80
--- NOTE | 2021-02-21 20:34 | ECGEPIP ---
[facility] - ED Test Date: 2021-02-21 Pat Name: JOZEF GRAY Department: Room: - Gender: Female Steersman: [place] : 1995 Requested By: KISHAN Hernandez Order Number: [id number] Reading MD: Jannie Mendiola Measurements Intervals [place] Rate: 75 P: 20 WV: 138 QRS: 67 QRSD: 80 T: -4 QT: 380 QTc: 424 Interpretive Statements Normal sinus rhythm NSTTW abnormalities similar 02/20/21 Electronically Signed on 02-21-2021 20:34:03 EDT by Jannie Mendiola
[2021-02-21 22:00] VITALS: BP 123/81
[2021-02-22] MEDS: MORPHINE 4 MG/ML 1ML VIAL/SYRINGE (J2270) IV PRN ×5 (01:02→23:28)
[2021-02-22] MEDS: traMADol 50 MG TAB PO PRN ×2 (05:26→13:58)
[2021-02-22 06:00] VITALS: BP 123/82
[2021-02-22 07:13] LABS: HEMATOCRIT 42.5 % (36.0-47.0); HEMOGLOBIN 12.8 g/dl (12.0-15.5); MEAN CORPUSCULAR HEMOGLOBIN 24.1 pg (27.0-33.0); MEAN CORPUSCULAR HGB CONC 30.1 g/dl (32.0-36.5); PLATELET COUNT, AUTOMATED 280 10^3/uL (150-450); RED BLOOD COUNT 5.31 10^6/uL (4.00-5.40); WHITE BLOOD COUNT 7.1 10^3/uL (4.0-10.0)
[2021-02-22 07:50] LABS: BLOOD UREA NITROGEN 13 MG/DL (7-18); CALCIUM LEVEL 8.8 MG/DL (8.5-10.1); CARBON DIOXIDE LEVEL 24 MEQ/L (21-32); CHLORIDE LEVEL 108 MEQ/L (98-107); CREATININE FOR GFR 0.66 MG/DL (0.55-1.30); GLOMERULAR FILTRATION RATE > 60.0 (>60); GLUCOSE, FASTING 85 MG/DL (70-100); POTASSIUM SERUM 4.2 MEQ/L (3.5-5.1); SODIUM LEVEL 139 MEQ/L (136-145)
[2021-02-22] MEDS: PRENATAL VITAMINS CHEWABLE TABLET PO SCH (09:41)
[2021-02-22] MEDS: ACETAMINOPHEN 500 MG TAB PO SCH ×3 (09:42→20:58)
[2021-02-22] MEDS: LIDOCAINE 5% (LIDODERM) PATCH TD SCH (09:42)
[2021-02-22] MEDS: ENOXAPARIN 80MG/0.8ML SYRINGE (J1650 PER 10MG) SC SCH ×2 (09:43→20:57)
--- NOTE | 2021-02-22 10:53 | IPNPDOC ---
Subjective Date Seen The patient was seen on 02/22/21. Subjective Chief Complaint/HPI Mrs. Larkin is a 25 year old female who recently delivered 1 month ago and has family history of hypercoagulable state who is here with pleuritic chest pain. Yesterday, she continued to have severe chest pain. 2view CXR was obtained. Demonstrated left lower lobe pulmonary infarction. 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 Nothing additional needed. Continue with Lovenox and pain control. This morning, pain still persistent and still requiring IV morphine. Added on lidocaine patch. Otherwise, discussed pulmonary infarction with patient. Objective Physical Examination General Exam: Positive: Alert, Cooperative, Mild Distress Eye Exam: Negative: Sclera icteric Neck Exam: Positive: Supple Chest Exam: Positive: Diminished Heart Exam: Positive: Rate Normal, Regular Rhythm Abdomen Exam: Positive: Normal bowel sounds, Soft; Negative: Tenderness Extremity Exam: Negative: Edema Neuro Exam: Positive: Normal Speech Psych Exam: Positive: Anxiety Assessment /Plan Assessment Mrs. Larkin is a 25 year old female who recently delivered 1 month ago and has family history of hypercoagulable state who is here with pleuritic chest pain. In prior ED visit, CT chest demonstrated a PE in the 2nd and 3rd order branches of the left lower lobe. 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 Overnight, her pain worsened and she returned to the ED. She was admitted for intractable pain. Repeat imaging demonstrated pneumonia vs pneumonitis. Unlikely pneumonia as she has no fever, leukocytosis, or hypoxia and procalcitonin was low. She may also be splinting due to the pain. Will scheduled acetaminophen and give PRN tramadol. Start incentive spirometer. Repeat 2view CXR demonstrated left lower lobe infarction. Discussed with pulmonology. Continue with current course. Supportive care and Lovenox Plan/VTE VTE Prophylaxis Ordered?: Yes Plan 1. Acute pulmonary embolus complicated by left lower lobe pulmonary infarction -May be provoked from recent , but she has strong family history of hypercoagulable state -Hypercoagulable work up pending -Scheduled acetaminophen, PRN tramadol, and PRN morphine for pain. Can consider ketorolac if something additional is needed -Added lidocaine patch -IS ordered -Continue full dose Lovenox 2. Recent -Delivered last month -Continue multivitamin 3. DVT ppx -Lovenox Disposition: Pending improvement in pleuritic pain. Still requiring IV morphine VS, I&O, 24H, Fishbone Vital Signs/I&O Vital Signs Date Time Temp Pulse Resp B/P (MAP) Pulse Ox O2 Delivery O2 Flow Rate FiO2 02/22/21 06:38 18 02/22/21 06:28 Room Air 02/22/21 06:00 97.9 97 123/82 (96) 97 I&O- Last 24 Hours up to 6 AM 02/22/21 05:59 Intake Total 990 ml Output Total 0 ml Balance 990 ml Laboratory Data 24H LABS Laboratory Tests 2 02/22/21 07:01: Nucleated Red Blood Cells % (auto) 0.0, Anion Gap 7L, Glomerular Filtration Rate > 60.0, Calcium Level 8.8 CBC/BMP Laboratory Tests 02/22/21 07:01 Microbiology Microbiology 02/21/21 Respiratory Virus Panel (PCR) ([facility]) - Final, Complete ZORAN RAMIREZ DO Feb 22, 2021 10:53
[2021-02-22 11:34] LABS: DRVV SCREEN 61.4 SEC
[2021-02-22 11:36] LABS: PTT LUPUS TYPE ANTICOAG SCREEN 1.6 (0-1.2)
[2021-02-22 11:43] LABS: DRVV CONFIRM 51.4 SEC; LUPUS CONFIRM RATIO 1.4
[2021-02-22 11:45] LABS: NORMALIZED RATIO 1.14 (0.00-1.20)
[2021-02-22 14:00] VITALS: BP 130/82
[2021-02-22] MEDS: oxyCODONE 5MG TAB PO PRN (19:04)
[2021-02-22] MEDS: **NOTE PATIENT COMMENT** MISC XX SCH (20:58)
[2021-02-22 22:00] VITALS: BP 120/75
[2021-02-23] MEDS: oxyCODONE 5MG TAB PO PRN ×2 (00:32→07:43)
[2021-02-23] MEDS: MORPHINE 4 MG/ML 1ML VIAL/SYRINGE (J2270) IV PRN ×5 (03:35→22:39)
[2021-02-23 06:00] VITALS: BP 125/77
[2021-02-23 06:23] LABS: HEMATOCRIT 43.4 % (36.0-47.0); MEAN CORPUSCULAR VOLUME 80.1 fl (80.0-96.0); PLATELET COUNT, AUTOMATED 271 10^3/uL (150-450); RED BLOOD COUNT 5.42 10^6/uL (4.00-5.40); WHITE BLOOD COUNT 5.7 10^3/uL (4.0-10.0)
[2021-02-23 06:34] LABS: BLOOD UREA NITROGEN 11 MG/DL (7-18); CALCIUM LEVEL 9.1 MG/DL (8.5-10.1); CARBON DIOXIDE LEVEL 24 MEQ/L (21-32); CHLORIDE LEVEL 109 MEQ/L (98-107); GLOMERULAR FILTRATION RATE > 60.0 (>60); GLUCOSE, FASTING 82 MG/DL (70-100); POTASSIUM SERUM 4.1 MEQ/L (3.5-5.1); SODIUM LEVEL 141 MEQ/L (136-145)
[2021-02-23] MEDS ORDERED: ISOVUE-370 76% 100ML VIAL As Ordered ONE (09:42)
[2021-02-23] MEDS: MELOXICAM (MOBIC) 7.5 MG TAB PO SCH (09:49)
[2021-02-23] MEDS: ACETAMINOPHEN 500 MG TAB PO SCH ×3 (09:50→20:13)
[2021-02-23] MEDS: PRENATAL VITAMINS CHEWABLE TABLET PO SCH (09:50)
[2021-02-23] MEDS: ENOXAPARIN 80MG/0.8ML SYRINGE (J1650 PER 10MG) SC SCH ×2 (09:51→20:14)
[2021-02-23] MEDS: LIDOCAINE 5% (LIDODERM) PATCH TD SCH (09:51)
--- NOTE | 2021-02-23 10:55 | REP ---
INDICATION: Persistent pain, pulmonary infarction. COMPARISON: CTA 02/20/2021, two-view chest 02/21/2021. TECHNIQUE: CT angiogram chest performed following the intravenous administration of 75 cc of Isovue 370. Sagittal and coronal reconstruction images are performed. FINDINGS: Lungs: There is a new left pleural effusion extending to the level of the aortic arch there is consolidation of lower portion of the left lower lobe including the lateral basal segment anteriorly which has the pulmonary infarction on the previous CT left upper lobe and lingular were unremarkable. Right lung shows only mild dependent atelectatic changes deep sulcus of the lower lobe. Mediastinum: No adenopathy. Pulmonary arteries: There remains thrombus in the 2nd and 3rd order vessels involving the lateral basal segment of the left lower lobe and suspected some in the posterior basal segment of the lobe. Medial basal and superior segments are grossly intact. Left upper lobe and the right lobe pulmonary arteries are without filling defects. Julianna: No adenopathy. Axilla: No adenopathy. Pleura: New left effusion, no right effusion. Heart: Not enlarged. No pericardial thickening or effusion Thoracic aorta: No aneurysm or dissection. Upper abdominal structures: Nonobstructing stones seen in upper pole calyx of the left kidney as before. Otherwise unremarkable. Visualized osseous structures: Unremarkable. IMPRESSION: There is evidence of 2nd and 3rd order pulmonary emboli in the left lower lobe involving the lateral and posterior basal segments;, thrombus grossly unchanged compared to 02/20/2021. New left pleural effusion and more extensive consolidation left lower lobe compared to the previous study with just some small peripheral opacity representing lateral basal segment infarct. No other significant or new finding in the chest. Nonobstructing stone upper pole left kidney again seen. <Electronically signed by Wesley Robb > 02/23/21 [id number]
--- NOTE | 2021-02-23 13:52 | IPNPDOC ---
Subjective Date Seen The patient was seen on 02/23/21. Subjective Chief Complaint/HPI Mrs. Larkin is a 25 year old female who recently delivered 1 month ago and has family history of hypercoagulable state who is here with pleuritic chest pain. This morning, she still has uncontrolled pleuritic chest pain. The lidocaine patch does help with the left lower chest wall tenderness, but not with the internal pain. Tramadol seems to last longer and better than oxycodone. Will switch her back to tramadol. Added on Meloxicam. Ordered CT angio chest since the pain was feeling worse. Demonstrated the PE and new left effusion. Effusion is small. Spoke with radiology, Dr. MARTÍNEZ. Most likely from PE Objective Physical Examination General Exam: Positive: Alert, Cooperative, Mild Distress Eye Exam: Negative: Sclera icteric Neck Exam: Positive: Supple Chest Exam: Positive: Diminished Heart Exam: Positive: Rate Normal, Regular Rhythm Abdomen Exam: Positive: Normal bowel sounds, Soft; Negative: Tenderness Extremity Exam: Negative: Edema Neuro Exam: Positive: Normal Speech Psych Exam: Positive: Anxiety Assessment /Plan Assessment Mrs. Larkin is a 25 year old female who recently delivered 1 month ago and has family history of hypercoagulable state who is here with pleuritic chest pain. In prior ED visit, CT chest demonstrated a PE in the 2nd and 3rd order branches of the left lower lobe. 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 Overnight, her pain worsened and she returned to the ED. She was admitted for intractable pain. Repeat imaging demonstrated pneumonia vs pneumonitis. Unlikely pneumonia as she has no fever, leukocytosis, or hypoxia and procalcitonin was low. She may also be splinting due to the pain. Will scheduled acetaminophen and give PRN tramadol. Start incentive spirometer. Repeat 2view CXR demonstrated left lower lobe infarction. Discussed with pulmonology. Continue with current course. Supportive care and Lovenox Plan/VTE VTE Prophylaxis Ordered?: Yes Plan 1. Acute pulmonary embolus complicated by left lower lobe pulmonary infarction -May be provoked from recent , but she has strong family history of hypercoagulable state -Hypercoagulable work up pending -Scheduled acetaminophen, PRN tramadol, and PRN morphine for pain. Added on Meloxicam today -Continue lidocaine patch -IS ordered -Continue full dose Lovenox 2. Recent -Delivered last month -Continue multivitamin 3. DVT ppx -Lovenox Disposition: Pending improvement in pleuritic pain. Still requiring IV morphine VS, I&O, 24H, Fishbone Vital Signs/I&O Vital Signs Date Time Temp Pulse Resp B/P (MAP) Pulse Ox O2 Delivery O2 Flow Rate FiO2 02/23/21 13:35 18 Room Air 02/23/21 06:00 98.7 93 125/77 (93) 94 I&O- Last 24 Hours up to 6 AM 02/23/21 06:00 Intake Total 1780 ml Balance 1780 ml Laboratory Data 24H LABS Laboratory Tests 2 02/23/21 06:02: Nucleated Red Blood Cells % (auto) 0.0, Anion Gap 8, Glomerular Filtration Rate > 60.0, Calcium Level 9.1 CBC/BMP Laboratory Tests 02/23/21 06:02 Microbiology Microbiology 02/21/21 Respiratory Virus Panel (PCR) ([facility]) - Final, Complete ZORAN RAMIREZ DO Feb 23, 2021 13:52
[2021-02-23 14:00] VITALS: BP 103/64
[2021-02-23] MEDS: traMADol 50 MG TAB PO PRN (19:12)
[2021-02-23] MEDS: **NOTE PATIENT COMMENT** MISC XX SCH (20:14)
[2021-02-23] MEDS ORDERED: ONDANSETRON 4MG/2ML VIAL IV PRN (20:40)
[2021-02-23 22:00] VITALS: BP 120/70
[2021-02-24] MEDS: traMADol 50 MG TAB PO PRN ×4 (01:24→21:28)
[2021-02-24] MEDS: MORPHINE 4 MG/ML 1ML VIAL/SYRINGE (J2270) IV PRN (04:40)
[2021-02-24 06:00] VITALS: BP 120/75
[2021-02-24 06:27] LABS: HEMATOCRIT 39.8 % (36.0-47.0); HEMOGLOBIN 11.8 g/dl (12.0-15.5); MEAN CORPUSCULAR HEMOGLOBIN 23.6 pg (27.0-33.0); MEAN CORPUSCULAR HGB CONC 29.6 g/dl (32.0-36.5); MEAN CORPUSCULAR VOLUME 79.8 fl (80.0-96.0); PLATELET COUNT, AUTOMATED 303 10^3/uL (150-450); RED BLOOD COUNT 4.99 10^6/uL (4.00-5.40)
[2021-02-24 06:46] LABS: BLOOD UREA NITROGEN 11 MG/DL (7-18); CALCIUM LEVEL 8.7 MG/DL (8.5-10.1); CARBON DIOXIDE LEVEL 29 MEQ/L (21-32); CHLORIDE LEVEL 109 MEQ/L (98-107); CREATININE FOR GFR 0.62 MG/DL (0.55-1.30); GLOMERULAR FILTRATION RATE > 60.0 (>60); GLUCOSE, FASTING 77 MG/DL (70-100); POTASSIUM SERUM 4.2 MEQ/L (3.5-5.1); SODIUM LEVEL 141 MEQ/L (136-145)
[2021-02-24] MEDS: ACETAMINOPHEN 500 MG TAB PO SCH ×3 (08:06→21:26)
[2021-02-24] MEDS: MELOXICAM (MOBIC) 7.5 MG TAB PO SCH (08:06)
[2021-02-24] MEDS: PRENATAL VITAMINS CHEWABLE TABLET PO SCH (08:06)
[2021-02-24] MEDS: LIDOCAINE 5% (LIDODERM) PATCH TD SCH (08:07)
[2021-02-24] MEDS: ENOXAPARIN 80MG/0.8ML SYRINGE (J1650 PER 10MG) SC SCH ×2 (08:07→21:28)
--- NOTE | 2021-02-24 08:50 | ECHO ---
ECHOCARDIOGRAM DATE OF PROCEDURE: 02/21/2021 Age: 25 Gender: Female Height: 65 inches Weight: 156 pounds Body Surface Area: 1.78 meters squared [address], room 5150 REFERRING PHYSICIAN: Dr. Emy Hernandez INDICATION: Chest pain/pulmonary embolism MEASUREMENTS: 2D Measurements: RV - 3.3 cm LV - 3.6 cm Septum 1.0 cm Posterior wall 1.0 cm Aortic Root 3.0 cm LA - 2.7 cm LVEF 75% Doppler Measurements: AV - 1.3 m/s LVOT - 0.9 m/s LVOT diameter 2.0 cm MV-E 53, A 47, E/A ratio 1.1 Early mitral deceleration time 187 msec E prime medial 10.8, A prime medial 14, E prime lateral 12.4 PV - 0.96 m/s Pulmonary artery acceleration time 95 msec PASP 39 mmHg IVC - 1.7 cm COMMENTS: Normal sinus rhythm without evidence of interventricular conduction disturbance. Technically challenging study possibly related to the patient's body habitus but also the experience of the joint supervisor. M-mode and 2-dimensional echocardiography was performed with pulse, continuous wave, color flow, and tissue Doppler studies. Normal left ventricular size and wall thickness with hyperkinetic wall motion. Normal left atrial size in Doppler assessment of left ventricular (LV) function and estimated mean left atrial pressure. Normal right heart chamber sizes and motion with single Doppler sign to suggest mild pulmonary hypertension (unfortunately we could not further accurately estimate her right ventricular systolic pressure using guided continuous wave Doppler of her tricuspid valve as we could not obtain a clear spectral envelope). Normal inferior vena cava (IVC) size and collapse against an elevated central venous pressure. Normal aortic diameters. Normal appearing and functioning aortic valve. Normal appearing and functioning mitral valve. Normal-appearing tricuspid valve with very mild (physiologic) insufficiency. No apparent intracardiac mass or pericardial effusion.
[2021-02-24] MEDS ORDERED: IBUPROFEN 400MG TAB PO PRN (13:25)
--- NOTE | 2021-02-24 14:02 | IPNPDOC ---
Subjective Date Seen The patient was seen on 02/24/21. Subjective Chief Complaint/HPI Mrs. Larkin is a 25 year old female who recently delivered 1 month ago and has family history of hypercoagulable state who is here with pleuritic chest pain. The tramadol is lasting longer than the oxycodone. She does better with the 100mg dose vs the 50mg dose and would last for about 4 hours. Switching meloxicam to Ibuprofen so she may alternate between the tramadol and Ibuprofen as needed to coverage of pain control so she would not be depended on IV morphine. Objective Physical Examination General Exam: Positive: Alert, Cooperative, Mild Distress Eye Exam: Negative: Sclera icteric Neck Exam: Positive: Supple Chest Exam: Positive: Diminished Heart Exam: Positive: Rate Normal, Regular Rhythm Abdomen Exam: Positive: Normal bowel sounds, Soft; Negative: Tenderness Extremity Exam: Negative: Edema Neuro Exam: Positive: Normal Speech Psych Exam: Positive: Anxiety Assessment /Plan Assessment Mrs. Larkin is a 25 year old female who recently delivered 1 month ago and has family history of hypercoagulable state who is here with pleuritic chest pain. In prior ED visit, CT chest demonstrated a PE in the 2nd and 3rd order branches of the left lower lobe. 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 Overnight, her pain worsened and she returned to the ED. She was admitted for intractable pain. Repeat imaging demonstrated pneumonia vs pneumonitis. Unlikely pneumonia as she has no fever, leukocytosis, or hypoxia and procalcitonin was low. She may also be splinting due to the pain. Start pain control regimen and incentive spirometer Repeat 2view CXR and CT chest demonstrated left lower lobe infarction. Discussed with pulmonology. Continue with current course. Supportive care and Lovenox. Plan/VTE VTE Prophylaxis Ordered?: Yes Plan 1. Acute pulmonary embolus complicated by left lower lobe pulmonary infarction -May be provoked from recent , but she has strong family history of hypercoagulable state -Hypercoagulable work up pending -Scheduled acetaminophen, PRN tramadol, PRN Ibuprofen, and PRN morphine for pain. Will attempt to wean from PRN IV morphine by having her alternate between PRN tramadol and PRN Ibuprofen -Continue lidocaine patch -IS ordered -Continue full dose Lovenox 2. Recent -Delivered last month -Continue multivitamin 3. DVT ppx -Lovenox Disposition: Pending improvement in pleuritic pain. Still requiring IV morphine VS, I&O, 24H, Fishbone Vital Signs/I&O Vital Signs Date Time Temp Pulse Resp B/P (MAP) Pulse Ox O2 Delivery O2 Flow Rate FiO2 02/24/21 08:38 18 Room Air 02/24/21 06:00 97.2 83 120/75 (90) 94 I&O- Last 24 Hours up to 6 AM 02/24/21 05:59 Intake Total 850 ml Balance 850 ml Laboratory Data 24H LABS Laboratory Tests 2 02/24/21 05:52: Nucleated Red Blood Cells % (auto) 0.0, Anion Gap 3L, Glomerular Filtration Rate > 60.0, Calcium Level 8.7 CBC/BMP Laboratory Tests 02/24/21 05:52 Microbiology Microbiology 02/21/21 Respiratory Virus Panel (PCR) ([facility]) - Final, Complete ZORAN RAMIREZ DO Feb 24, 2021 14:02
[2021-02-24] MEDS: **NOTE PATIENT COMMENT** MISC XX SCH (21:29)
[2021-02-24 22:00] VITALS: BP 115/65
[2021-02-25] MEDS: traMADol 50 MG TAB PO PRN ×2 (03:04→09:19)
[2021-02-25 05:55] LABS: HEMATOCRIT 41.7 % (36.0-47.0); HEMOGLOBIN 12.7 g/dl (12.0-15.5); MEAN CORPUSCULAR HEMOGLOBIN 24.2 pg (27.0-33.0); MEAN CORPUSCULAR HGB CONC 30.5 g/dl (32.0-36.5); MEAN CORPUSCULAR VOLUME 79.6 fl (80.0-96.0); PLATELET COUNT, AUTOMATED 330 10^3/uL (150-450); RED BLOOD COUNT 5.24 10^6/uL (4.00-5.40); WHITE BLOOD COUNT 3.3 10^3/uL (4.0-10.0)
[2021-02-25 06:00] VITALS: BP 119/75
[2021-02-25 06:24] LABS: BLOOD UREA NITROGEN 11 MG/DL (7-18); CALCIUM LEVEL 8.7 MG/DL (8.5-10.1); CARBON DIOXIDE LEVEL 28 MEQ/L (21-32); CHLORIDE LEVEL 109 MEQ/L (98-107); CREATININE FOR GFR 0.62 MG/DL (0.55-1.30); GLOMERULAR FILTRATION RATE > 60.0 (>60); GLUCOSE, FASTING 77 MG/DL (70-100); POTASSIUM SERUM 4.3 MEQ/L (3.5-5.1); SODIUM LEVEL 140 MEQ/L (136-145)
[2021-02-25] MEDS: ACETAMINOPHEN 500 MG TAB PO SCH (08:33)
[2021-02-25] MEDS: PRENATAL VITAMINS CHEWABLE TABLET PO SCH (08:33)
[2021-02-25] MEDS: ENOXAPARIN 80MG/0.8ML SYRINGE (J1650 PER 10MG) SC SCH (08:34)
[2021-02-25] MEDS: LIDOCAINE 5% (LIDODERM) PATCH TD SCH (08:34)
[2021-02-25] MEDS ORDERED: TRAM100T36 PO (11:21)
[2021-02-25] MEDS ORDERED: ACET-683 PO (11:21)
[2021-02-25] MEDS ORDERED: LIDO5TD TD (11:21)
[2021-02-25] MEDS ORDERED: IBUP-1114 PO (11:21)
[2021-02-25 19:10] LABS: ANCA-ATYPICAL <1:20 titer (Neg:<1:20); ANTI THROMBIN 3 ANTIGEN IMMUNO 100 % (72-124); ANTI THROMBIN 3 FUNCT ACTIVITY 128 % (75-135); ANTINUCLEAR ANTIBODIES DIRECT Negative (Negative); CARDIOLIPIN IGA ANTIBODY <9 APL U/mL (0-11); CARDIOLIPIN IGG ANTIBODY <9 GPL U/mL (0-14); CARDIOLIPIN IGM ANTIBODY 11 MPL U/mL (0-12); CYTOPLASMIC NEUTROP AB ANCA-C <1:20 titer (Neg:<1:20); HOMOCYST(E)INE SERUM 7.7 umol/L (0.0-14.5); PERINUCLEAR AB ANCA-P <1:20 titer (Neg:<1:20)
--- NOTE | 2021-02-25 22:06 | DS.PDOC ---
Discharge Summary General Date of Admission Feb 21, 2021 Date of Discharge Feb 25, 2021 Discharge Summary PROCEDURES PERFORMED DURING STAY: None ADMITTING DIAGNOSES: 1. Intractable pleuritic pain secondary to pulmonary embolus complicated by pulmonary infarction 2. Recent DISCHARGE DIAGNOSES: 1. Intractable pleuritic pain secondary to pulmonary embolus complicated by pulmonary infarction 2. Recent COMPLICATIONS/CHIEF COMPLAINT: Pulmonary Embolism. HISTORY OF PRESENT ILLNESS: Copied from admitting attending H&P " 25-year-old female recently delivered vaginally 1 month ago currently on maternity leave, with strong family history of hypercoagulable state, with the mother having a PE on chronic Xarelto and maternal grandmother also taking blood thinners, was in her usual state of health until yesterday when she developed acute onset of pleuritic chest pain and shortness of breath. She denied any palpitations dizziness lightheadedness near syncope or dyspnea on exertion but describes the pain as a crossed the chest sometimes leading down the left arm feeling like heartburn or a pulled muscle. 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 Throughout the night patient developed worsening pleuritic chest pain now with radiation to the back left flank and unable to catch her breath prompting her to come to the ER she was found to be hemodynamically stable with systolic pressure 133 tachycardic with heart rate of 111 bpm and saturating 94% on room air with ambulation hospitalist was called to admit the patient due to uncontrolled pleuritic chest pain from pulmonary embolism. EKG showed no right ventricular strain echocardiogram ordered patient was started on Lovenox 1 mg/kg every 12 hours. Percocet was given for pain control. " HOSPITAL COURSE: When I saw the patient, she appeared to be in respiratory distress. She was saturating well at room air, but spoke in short sentences and was in pain with each breath. Ordered a PA/LA two view chest XR which demonstrated pulmonary infarction. Touched base with pulmonology about pulmonary infarction. Unfortunately, there was not anything else to do except supportive care and pain control. Hypercoagulable worked up was ordered. Patient was put on full dose Lovenox. Acetaminophen was scheduled. Added lidocaine patch which helped with the left chest wall tenderness. Morphine did provide relief, but tramadol lasted longer. Attempted oxycodone as it can be given more frequently, but did not control the pain as well as tramadol. Pain persist and CT angio chest was repeated. Demonstrated the left pleural effusion, left pulmonary embolus, and left pulmonary infarct. The pulmonary embolus was unchanged. Otherwise added on Ibuprofen to the pain regimen. Patient was able to control pain without the need for morphine. Today, patient felt well. She still had pain, but it was controlled. She looked more comfortable and not in any distre ss. She felt ready for home and was subsequently discharged home. DISCHARGE MEDICATIONS: Please see below. ALLERGIES: Please see below. PHYSICAL EXAMINATION ON DISCHARGE: VITAL SIGNS: Please see below. GENERAL: Comfortable, in no apparent distress. HEENT: Head normocephalic/atraumatic, EOMI, sclera clear. NECK: Supple. RESPIRATORY: Lungs clear to auscultation bilaterally. CARDIOVASCULAR: Regular rate and rhythm. ABDOMEN: Soft, nontender, no guarding or rebound tenderness. Normal bowel sound s. MUSCLE SKELETAL: Muscle strength 5/5 in all extremities. NEUROLOGICAL: CN 312 grossly intact, no focal deficits noted. PSYCHOLOGICAL: Normal mood and affect LABORATORY DATA: Please see below. IMAGING: Radiologist interpretation CT angio chest There is evidence of 2nd and 3rd order pulmonary emboli in the left lower lobe involving the lateral and posterior basal segments;, thrombus grossly unchanged compared to 02/20/2021. New left pleural effusion and more extensive consolidation left lower lobe compared to the previous study with just some small peripheral opacity representing lateral basal segment infarct. No other significant or new finding in the chest. Nonobstructing stone upper pole left kidney again seen. PROGNOSIS: Good ACTIVITY: As tolerated. DIET: As tolerated DISCHARGE PLAN: Home DISPOSITION: 01 Home, Self-Care. DISCHARGE INSTRUCTIONS: 1. Follow up with you PCP in 1 week ITEMS TO FOLLOWUP ON ON OUTPATIENT: 1. Hypercoagulable work up DISCHARGE CONDITION: Stable Total time spent on discharge planning, discharge summary, and medication reconciliation: 45 minutes Vital Signs/I&Os Vital Signs Date Time Temp Pulse Resp B/P (MAP) Pulse Ox O2 Delivery O2 Flow Rate FiO2 02/25/21 09:49 16 02/25/21 06:00 97.2 98 119/75 (90) 92 Room Air I&O- Last 24 Hours up to 6 AM 02/25/21 06:00 Intake Total 2360 ml Balance 2360 ml Laboratory Data Labs 24H Laboratory Tests 2 02/25/21 05:40: Nucleated Red Blood Cells % (auto) 0.0, Anion Gap 3L, Glomerular Filtration Rate > 60.0, Calcium Level 8.7 CBC/BMP Laboratory Tests 02/25/21 05:40 Microbiology Microbiology 02/21/21 Respiratory Virus Panel (PCR) ([facility]) - Final, Complete Discharge Medications Scheduled Acetaminophen (Acetaminophen) 500 Mg Tablet, 1,000 MG PO TID Lidocaine (Lidocaine) 5% Adh..patch, 1 PATCH TD DAILY No.137/Iron/Folic Acd ( Vitamin Tablet) 1 Each Tablet, 1 TAB PO DAILY, (Reported) Rivaroxaban (Xarelto) 15 Mg Tablet, 15 MG PO BID, (Reported) Scheduled PRN Ibuprofen (Ibuprofen) 400 Mg Tablet, 400 MG PO Q6HP PRN for MILD PAIN (PS 1-4) Tramadol HCl (Tramadol HCl) 100 Mg Tablet, 100 MG PO Q6HP PRN for Pain Allergies Coded Allergies: No Known Drug Allergies (Verified Allergy, Unknown, 02/20/21) ZORAN RAMIREZ DO Feb 25, 2021 22:06
== END 2021-02-25 13:30 | disposition home or self-care (01) | DRG 776 ==
LOC: M ED 02:42 → M ED INP 02:43 → ENRESERV 06:05 → M MS5PR 08:35 → OBSVTOIN 02-22 09:03
PROVIDERS: ADMIT General Practice; ATTEND Internal Medicine
DX: O88.83 Other embolism in the puerperium (principal); I26.99 Other pulmonary embolism without acute cor pulmonale; J18.9 Pneumonia, unspecified organism; Z83.2 Family history of diseases of the blood and blood-forming organs and certain disorders involving the immune mechanism

== ENCOUNTER 2022-01-25 21:45 | Outpatient (CLI) | payer OTHER ==
[~2022-01-25] VITALS: Ht 165.1 cm; Wt 73.3 kg
[~2022-01-25 21:45] MED LIST changes: +ACET-683 PO; +IBUP-1114 PO; +LIDO5TD TD; +TRAM100T36 PO
== END 2022-01-25 23:00 | disposition home or self-care (01) ==
LOC: M LDO 21:45
PROVIDERS: ATTEND Obstetrics & Gynecology
DX: O46.93 Antepartum hemorrhage, unspecified, third trimester (principal); Z3A.34 34 weeks gestation of pregnancy; Z86.711 Personal history of pulmonary embolism; Z79.01 Long term (current) use of anticoagulants
CPT/HCPCS: 59025; 76815; G0463

== ENCOUNTER 2022-02-20 07:44 | Inpatient (IN) | payer OTHER ==
[2022-02-20] VITALS (10 sets, daily range): BP systolic 112–145; BP diastolic 66–84
[~2022-02-20] VITALS: Ht 165.1 cm; Wt 73.8 kg
[2022-02-20] MEDS ORDERED: ZOLO50TA PO (08:18)
[2022-02-20] MEDS ORDERED: COLA100C5 PO (08:18)
[2022-02-20] MEDS ORDERED: TUMS500C PO (08:18)
[2022-02-20] MEDS ORDERED: LOVE1INJ SC (08:18)
[2022-02-20] MEDS ORDERED: ECOT81TA5 PO (08:18)
[2022-02-20] MEDS ORDERED: **PENDING PCN ENTRY XX SCH (09:00)
[2022-02-20] MEDS: PRENATAL VITAMINS CHEWABLE TABLET PO SCH (09:00)
[2022-02-20] MEDS ORDERED: PENICILLIN G POTASSIUM IV 5 MU in D5W MINI-BAG PLUS 100 ML IV STA ×2 (12:49→13:12)
[2022-02-20] MEDS ORDERED: CARBOPROST TROMETHAMINE 250 MCG/ML AMP IM PRN (12:50)
[2022-02-20] MEDS ORDERED: OXYTOCIN DRIP 30 UNITS in IV 1 EA IV PRN ×4 (12:50)
[2022-02-20] MEDS ORDERED: LIDOCAINE 1% MDV 20ML VIAL INFIL PRN (12:50)
[2022-02-20] MEDS ORDERED: miSOPROStol 50MCG 1/2 TABLET PO ONE (12:50)
[2022-02-20] MEDS ORDERED: METHYLERGONOVINE MALEATE 0.2 MG/ML VIAL (J2210) IM PRN (12:50)
[2022-02-20] MEDS ORDERED: TRANEXAMIC ACID INJection 1,000 MG in NS 100 ML IV PRN (12:50)
[2022-02-20 13:00] LABS: HEMOGLOBIN 12.7 g/dl (12.0-15.5); MEAN CORPUSCULAR HEMOGLOBIN 28.7 pg (27.0-33.0); MEAN CORPUSCULAR HGB CONC 32.6 g/dl (32.0-36.5); MEAN CORPUSCULAR VOLUME 88.2 fl (80.0-96.0); PLATELET COUNT, AUTOMATED 244 10^3/uL (150-450); RED BLOOD COUNT 4.42 10^6/uL (4.00-5.40); WHITE BLOOD COUNT 8.1 10^3/uL (4.0-10.0)
[2022-02-20] MEDS ORDERED: miSOPROStol 25MCG 1/4 TABLET PO SCH (13:00)
[2022-02-20] MEDS ORDERED: PENICILLIN G POTASSIUM IV 2.5 MU in IV 1 EA IV SCH ×3 (13:15→17:30)
[2022-02-20] MEDS: LR 1,000 ML IV SCH ×2 (13:32→15:51)
[2022-02-20] MEDS ORDERED: FENTANYL/ROPIVACAINE/NACL BAG 100 ML EPIDURAL SCH (16:00)
[2022-02-20] MEDS ORDERED: ePHEDrine SULFATE 25 MG/5 ML(5MG/ML) SYRINGE IVP PRN (16:00)
[2022-02-20] MEDS ORDERED: LR 500 ML IV PRN (16:00)
[2022-02-20] MEDS ORDERED: NALOXONE INJ 0.4MG/1ML VIAL (J2310 PER 1MG) IV PRN (16:00)
[2022-02-20] MEDS ORDERED: diphenhydrAMINE 50MG/ML VIAL (J1200) IV PRN (16:00)
[2022-02-20] MEDS ORDERED: ONDANSETRON 4MG 2ML VIAL IV PRN ×2 (16:00→17:20)
[2022-02-20] MEDS ORDERED: EPIDURAL/PCA KEYS XX PRN (16:00)
[2022-02-20 17:05] LABS: CORD GAS HCO3 A 23.8 MEQ/L; CORD GAS O2 SAT A 51.3 %; CORD GAS PCO2 A 49.2 mmHg; CORD GAS PH A 7.303 UNITS; CORD GAS PO2 A 21.8 mmHg; CORD GAS SBC A 20.9 MEQ/L; CORD GAS TCO2 A 25.3 MEQ/L
[2022-02-20 17:06] LABS: CORD GAS HCO3 V 20.4 MEQ/L; CORD GAS PCO2 V 35.4 mmHg; CORD GAS PH V 7.379 UNITS; CORD GAS PO2 V 20.9 mmHg; CORD GAS SBC V 20.3 MEQ/L; CORD GAS TCO2 V 21.5 MEQ/L
[2022-02-20] MEDS ORDERED: METHYLERGONOVINE MALEATE 0.2 MG TAB PO PRN (17:20)
[2022-02-20] MEDS ORDERED: DOCUSATE SODIUM 100MG CAPSULE PO PRN (17:20)
[2022-02-20] MEDS ORDERED: RHOGAM 300 MCG (1500 IU) INJ (J2790) IM SCH (17:20)
[2022-02-20] MEDS ORDERED: LR 1,000 ML IV SCH (17:20)
[2022-02-20] MEDS ORDERED: DIBUCAINE 1% OINTMENT 30GM TOP PRN (17:20)
[2022-02-20] MEDS ORDERED: PROMETHAZINE 25 MG TAB PO PRN (17:20)
[2022-02-20] MEDS: ACETAMINOPHEN 500 MG TAB PO SCH (18:15)
[2022-02-20] MEDS: IBUPROFEN 800 MG TAB PO SCH (18:15)
[2022-02-21] MEDS: ACETAMINOPHEN 500 MG TAB PO SCH ×5 (00:43→23:41)
[2022-02-21] MEDS: IBUPROFEN 800 MG TAB PO SCH ×3 (02:17→18:54)
[2022-02-21 06:00] VITALS: BP 112/72
[2022-02-21 06:35] LABS: HEMATOCRIT 37.1 % (36.0-47.0); HEMOGLOBIN 12.2 g/dl (12.0-15.5); MEAN CORPUSCULAR HEMOGLOBIN 29.3 pg (27.0-33.0); MEAN CORPUSCULAR HGB CONC 32.9 g/dl (32.0-36.5); MEAN CORPUSCULAR VOLUME 89.2 fl (80.0-96.0); PLATELET COUNT, AUTOMATED 218 10^3/uL (150-450); RED BLOOD COUNT 4.16 10^6/uL (4.00-5.40); WHITE BLOOD COUNT 10.8 10^3/uL (4.0-10.0)
[2022-02-21] MEDS: PRENATAL VITAMINS CHEWABLE TABLET PO SCH (08:31)
[2022-02-21] MEDS: SERTRALINE HCL 50 MG TAB PO SCH (08:31)
[2022-02-21] MEDS ORDERED: PRENATAL VITAMINS CHEWABLE TABLET PO SCH (09:00)
[2022-02-21] MEDS: ENOXAPARIN 80MG/0.8ML SYRINGE (J1650 PER 10MG) SC SCH (16:47)
[2022-02-21 18:00] VITALS: BP 125/85
[2022-02-22] MEDS: IBUPROFEN 800 MG TAB PO SCH ×2 (02:30→12:50)
[2022-02-22] MEDS: ENOXAPARIN 80MG/0.8ML SYRINGE (J1650 PER 10MG) SC SCH (04:47)
[2022-02-22 06:00] VITALS: BP 117/77
[2022-02-22] MEDS: ACETAMINOPHEN 500 MG TAB PO SCH ×2 (06:04→12:51)
[2022-02-22] MEDS: PRENATAL VITAMINS CHEWABLE TABLET PO SCH (08:47)
[2022-02-22] MEDS: SERTRALINE HCL 50 MG TAB PO SCH (08:48)
[2022-02-22] MEDS ORDERED: MEASLES,MUMPS,RUBELLA VACCINE INJ (MMR-II) (90707) SC.IMMUN ONE (09:00)
== END 2022-02-22 13:31 | disposition home or self-care (01) | DRG 807 ==
LOC: M LDI 07:44 → M OBS 21:30
PROVIDERS: ADMIT Obstetrics & Gynecology; ATTEND Obstetrics & Gynecology
PROC: 10E0XZZ Delivery of Products of Conception, External Approach (ICD-10-PCS; principal; 2022-02-20)
PROC: 3E0P7GC Introduction of Other Therapeutic Substance into Female Reproductive, Via Natural or Artificial Opening (ICD-10-PCS; 2022-02-20)
DX: O99.892 Other specified diseases and conditions complicating childbirth (principal); Z37.0 Single live birth; O99.824 Streptococcus B carrier state complicating childbirth; Z3A.38 38 weeks gestation of pregnancy; Z79.01 Long term (current) use of anticoagulants; Z86.711 Personal history of pulmonary embolism; Z79.82 Long term (current) use of aspirin; Z79.899 Other long term (current) drug therapy

== ENCOUNTER → 2022-04-11 | Outpatient (CLI) | payer OTHER ==
[~2022-04-11] MED LIST changes: +COLA100C5 PO; +ECOT81TA5 PO; +LOVE1INJ SC; +TUMS500C PO; +ZOLO50TA PO
== END ==
LOC: MERGE 10:12 → M LAB 10:12
PROVIDERS: ATTEND Internal Medicine Hematology
DX: I82.90 Acute embolism and thrombosis of unspecified vein (principal)

== ENCOUNTER → 2022-04-24 | Outpatient (CLI) | payer OTHER | LOC: M LAB 15:34 | PROVIDERS: ATTEND Internal Medicine Hematology | DX: I82.90 Acute embolism and thrombosis of unspecified vein (principal) ==

== ENCOUNTER 2024-08-26 17:46 | Emergency (ER) | payer SELFPAY ==
[~2024-08-26] VITALS: Ht 165.1 cm; Wt 68.9 kg
[2024-08-27] MEDS ORDERED: LAMI1TAB8 PO (00:51)
[2024-08-27 01:15] VITALS: BP 114/79; TEMP 97.1; O2SAT 100
== END 2024-08-27 01:15 | disposition home or self-care (01) ==
LOC: M ED 17:46
DX: Z76.0 Encounter for issue of repeat prescription (principal); F41.9 Anxiety disorder, unspecified; Z79.810 Long term (current) use of selective estrogen receptor modulators (SERMs); Z79.899 Other long term (current) drug therapy

== ENCOUNTER → 2025-06-02 | Outpatient (RCR) ==
[~2025-06-02] MED LIST changes: -FLOM0.4C39 PO; +LAMI1TAB8 PO; +TAMS-18 PO; -TRAM100T36 PO; -VITA500T17 PO; +VITA500T8 PO; +[UNRECOGNIZED DRUG - CODE] PO
== END ==
LOC: M EMPSKH 05-24 13:07
PROVIDERS: ATTEND Family Medicine
DX: Z20.828 Contact with and (suspected) exposure to other viral communicable diseases (principal)